=== PATIENT | male | born 1975 | race American Indian/Alaskan Native ===

== ENCOUNTER 2017-11-06 03:17 | Emergency (ER) | payer SELFPAY ==
[2017-11-06 03:36] VITALS: BP 124/80
--- NOTE | 2017-11-06 04:52 | Emergency Department Report ---
Chief Complaint: Urogenital-Male Stated Complaint: PENIS PAIN - HPI History of Present Illness: 42-year-old -[place] male comes in reporting pain on penis but not scrotum. Patient denies dysuria denies any penile discharge. Reports it hurts when he sitting and lying down. Patient reports he took an aspirin which he reported did not help. He reports he does have a sore on the side of his penis. Patient denies any drainage from the sore. Patient denies nausea vomiting fever or chills. Denies any abdominal pain or pelvic pain. Patient has no past medical history currently takes no medications and has no known drug allergies. - Exam Vital Signs: Vital Signs 11/06/17 03:20 Temperature 98.5 F Pulse Rate 93 H Respiratory 18 Rate Blood Pressure 124/80 O2 Sat by Pulse 99 Oximetry Physical Exam: Patient is alert and oriented 3. Genital exam shows there is a open sore to the proximal penile shaft with no swelling nonerythematous. Testicles are nonswollen and nonerythematous non-painful to palpate. Penis is circumcised discharge appreciated MSE screening note: Focused history and physical exam performed. Due to findings the following was ordered: Discussed the patient he can follow-up with the health department staff at [facility] Patient presents with a non-medical emergency. ED Disposition for MSE Disposition: MED SCREENING EXAM-LEFT Condition: Stable Referrals: ALYSSA FISH MD [Primary Care Provider] - 3-5 Days
== END 2017-11-06 04:30 | disposition left against medical advice (07) ==
LOC: ED 03:17
DX: N48.89 Other specified disorders of penis (principal); Z53.21 Procedure and treatment not carried out due to patient leaving prior to being seen by health care provider

== ENCOUNTER 2019-11-19 18:27 | Emergency (ER) | payer SELFPAY ==
[2019-11-19 19:10] LABS: Basophils % (Auto) 0.8 % (0.0-1.8); Eosinophils # (Auto) 0.4 K/mm3 (0.0-0.4); Eosinophils % (Auto) 7.4 % (0.0-4.3); Hematocrit 42.2 % (35.5-45.6); Hemoglobin 14.6 gm/dl (11.8-15.2); Lymphocytes # (Auto) 1.5 K/mm3 (1.2-5.4); Lymphocytes % (Auto) 30.8 % (13.4-35.0); Mean Corpuscular HGB Conc 35 % (32-34); Mean Corpuscular Volume 95 fl (84-94); Monocytes # (Auto) 0.4 K/mm3 (0.0-0.8); Monocytes % (Auto) 9.2 % (0.0-7.3); Platelet Count 228 K/mm3 (140-440); Red Blood Count 4.45 M/mm3 (3.65-5.03)
[2019-11-19 19:11] LABS: Bilirubin,Urine NEG (Negative); Blood,Urine NEG (Negative); Color,Urine Yellow (Yellow); Protein,Urine <15 mg/dL mg/dL (Negative); Urobilinogen,Urine < 2.0 mg/dL (<2.0)
[2019-11-19 19:31] LABS: Alanine Aminotransferase 27 units/L (7-56); Albumin 4.1 g/dL (3.9-5); BUN/Creatinine Ratio 12; Blood Urea Nitrogen 12 mg/dL (9-20); Hemolysis Index 9
[2019-11-19] MEDS ORDERED: MORPHINE 4 MG/1 ML INJ IV ONE (20:52)
[2019-11-19] MEDS ORDERED: ONDANSETRON 4 MG/2 ML INJ IV ONE (20:52)
[2019-11-19] MEDS ORDERED: SODIUM CHLORIDE 0.9% 1000 ML 1,000 ML IV ONE (20:52)
[2019-11-19] MEDS ORDERED: PANTOPRAZOLE 40 MG INJ IV ONE (21:11)
--- NOTE | 2019-11-19 21:12 | Emergency Department Report ---
ED Abdominal Pain HPI - General Chief Complaint: Abdominal Pain Stated Complaint: STOMACH PAIN Time Seen by Provider: 11/19/19 19:38 Source: patient Mode of arrival: Ambulatory Limitations: No Limitations - History of Present Illness Initial Comments: Patient is a 44-year-old male presents emergency room with complaints of left- sided abdominal pain that began yesterday. He describes the pain as intermittent sharp stabbing pain. He denies any nausea, vomiting, diarrhea, fever, urinary symptoms, pain or swelling in the testicles. He states he had a bowel movement last night, he states that it did feel like he was straining more to have a bowel movement, he denies any rectal bleeding, melena, hematochezia. He denies any sick contacts or recent travel. He has a past surgical history of appendectomy. No allergies to medications. Severity scale (0 -10): 8 - Related Data Previous Rx's Medication Instructions Recorded Last Taken Type Docusate Sodium [Colace] 100 mg PO BID PRN #20 capsule 11/19/19 Unknown Rx Famotidine [Pepcid] 40 mg PO QHS #14 tablet 11/19/19 Unknown Rx Polyethylene Glycol 3350 [Miralax] 7 gm PO DAILY PRN #1 powder 11/19/19 Unknown Rx Simethicone [Gas-X] 62.5 mg PO Q6HR PRN #1 strip 11/19/19 Unknown Rx Allergies Allergy/AdvReac Type Severity Reaction Status Date / Time No Known Allergies Allergy Verified 11/19/19 18:31 ED Review of Systems ROS: Stated complaint: STOMACH PAIN Other details as noted in HPI Comment: All other systems reviewed and negative ED Past Medical Hx - Past Medical History Previous Medical History?: No - Surgical History Hx Appendectomy: (" CLIPPED APPENDIX.') - Social History Smoking Status: Current Every Day Smoker Substance Use Type: None - Medications Home Medications: Home Medications Medication Instructions Recorded Confirmed Last Taken Type Docusate Sodium [Colace] 100 mg PO BID PRN #20 capsule 11/19/19 Unknown Rx Famotidine [Pepcid] 40 mg PO QHS #14 tablet 11/19/19 Unknown Rx Polyethylene Glycol 3350 [Miralax] 7 gm PO DAILY PRN #1 powder 11/19/19 Unknown Rx Simethicone [Gas-X] 62.5 mg PO Q6HR PRN #1 strip 11/19/19 Unknown Rx ED Physical Exam - General Limitations: No Limitations General appearance: alert, in no apparent distress - Head Head exam: Present: atraumatic, normocephalic - Eye Eye exam: Present: normal appearance - ENT ENT exam: Present: mucous membranes moist - Respiratory Respiratory exam: Present: normal lung sounds bilaterally. Absent: respiratory distress, wheezes, rales, rhonchi, stridor, chest wall tenderness, accessory muscle use, decreased breath sounds, prolonged expiratory - Cardiovascular Cardiovascular Exam: Present: regular rate, normal rhythm, normal heart sounds. Absent: systolic murmur, diastolic murmur, rubs, gallop - GI/Abdominal GI/Abdominal exam: Present: soft, tenderness (LUQ, epigastric), normal bowel sounds. 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 Absent: testicular tenderness, urethral discharge, scrotal swelling External exam: Present: normal external exam - Neurological Exam Neurological exam: Present: alert, oriented X3 - Psychiatric Psychiatric exam: Present: normal affect, normal mood - Skin Skin exam: Present: warm, dry, intact ED Course Vital Signs 11/19/19 11/19/19 18:35 21:35 Temperature 98.3 F Pulse Rate 88 Respiratory 15 18 Rate Blood Pressure 125/94 [Left] O2 Sat by Pulse 100 Oximetry ED Medical Decision Making - Lab Data Result diagrams: 11/19/19 18:56 11/19/19 18:56 Lab Results 11/19/19 11/19/19 11/19/19 Range/Units 18:56 18:56 Unknown WBC 4.9 (4.5-11.0) K/mm3 RBC 4.45 (3.65-5.03) M/mm3 Hgb 14.6 (11.8-15.2) gm/dl Hct 42.2 (35.5-45.6) % MCV 95 H (84-94) fl MCH 33 H (28-32) pg MCHC 35 H (32-34) % RDW 14.0 (13.2-15.2) % Plt Count 228 (140-440) K/mm3 Lymph % (Auto) 30.8 (13.4-35.0) % [place] % (Auto) 9.2 H (0.0-7.3) % Eos % (Auto) 7.4 H (0.0-4.3) % Baso % (Auto) 0.8 (0.0-1.8) % Lymph # 1.5 (1.2-5.4) K/mm3 [place] # 0.4 (0.0-0.8) K/mm3 Eos # 0.4 (0.0-0.4) K/mm3 Baso # 0.0 (0.0-0.1) K/mm3 Seg Neutrophils % 51.8 (40.0-70.0) % Seg Neutrophils # 2.5 (1.8-7.7) K/mm3 Sodium 139 (137-145) mmol/L Potassium 4.4 (3.6-5.0) mmol/L Chloride 102.5 (98-107) mmol/L Carbon Dioxide 26 (22-30) mmol/L Anion Gap 15 mmol/L BUN 12 (9-20) mg/dL Creatinine 1.0 (0.8-1.5) mg/dL Estimated GFR > 60 ml/min BUN/Creatinine Ratio 12 % Glucose 97 (75-100) mg/dL Calcium 9.0 (8.4-10.2) mg/dL Total Bilirubin 0.40 (0.1-1.2) mg/dL AST 22 (5-40) units/L ALT 27 (7-56) units/L Alkaline Phosphatase 77 (35-129) units/L Total Protein 6.7 (6.3-8.2) g/dL Albumin 4.1 (3.9-5) g/dL Albumin/Globulin Ratio 1.6 % Urine Color Yellow (Yellow) Urine Turbidity Clear (Clear) Urine pH 7.0 (5.0-7.0) Ur Specific [place] 1.018 (1.003-1.030) Urine Protein <15 mg/dl (Negative) mg/dL Urine Glucose (UA) Neg (Negative) mg/dL Urine Ketones Neg (Negative) mg/dL Urine Blood Neg (Negative) Urine Nitrite Neg (Negative) Urine Bilirubin Neg (Negative) Urine Urobilinogen < 2.0 (<2.0) mg/dL Ur Leukocyte Esterase Neg (Negative) Urine WBC (Auto) 1.0 (0.0-6.0) /HPF Urine RBC (Auto) 1.0 (0.0-6.0) /HPF U Epithel Cells (Auto) < 1.0 (0-13.0) /HPF - Radiology Data Radiology results: report reviewed CT abdomen pelvis w con INDICATION / CLINICAL INFORMATION: MAIN: epigastric, LUQ pain Omnipaque 300, 100ml given. . TECHNIQUE: All CT scans at this location are performed using CT dose reduction for ALARA by means of automated exposure control. COMPARISON: 10/15/2019 FINDINGS: Limited lower thoracic images show no acute pulmonary disease. ABDOMEN: The gallbladder, liver, spleen, pancreas, kidneys and adrenal glands are normal. No small bowel dilatation. Pelvis: Post surgical changes are seen in the right lower quadrant presumably due to appendectomy. No dependent fluid collections or inflammatory changes are seen in the pelvis. Mild hypertrophic degenerative changes are seen in the lumbar spine at L4. IMPRESSION: 1. No acute findings in the abdomen or pelvis Signer Name: Angel Luis Mcnulty MD Signed: 11/19/2019 9:49 PM Workstation Name: [id number] Transcribed By: BHUPINDER Dictated By: Angel Luis Mcnulty MD Electronically Authenticated By: Angel Luis Mcnulty MD Signed Date/Time: 11/19/192148 DD/ 45 TD/TT: - Medical Decision Making Patient is a 44-year-old male presents emergency room with complaints of left- sided abdominal pain that began yesterday. He describes the pain as int ermittent sharp stabbing pain. He denies any nausea, vomiting, diarrhea, fever, urinary symptoms, pain or swelling in the testicles. He states he had a bowel movement last night, he states that it did feel like he was straining more to have a bowel movement, he denies any rectal bleeding, melena, hematochezia. He denies any sick contacts or recent travel. He has a past surgical history of appendectomy. No allergies to medications. Vitals are normal. Labs are normal. 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 CT abd pelvis with IV contrast: 1. No acute findings in the abdomen or pelvis. Patient given IV fluids, morphine, Zofran, Protonix and symptoms resolved. Appears to have stool and gas present on CT without signs of obstruction. Patient given prescription for MiraLAX, Colace, Pepcid, simethicone. Advised patient Please take medication as prescribed. Increase your water intake. Increase your fiber intake. Follow-up with a primary care doctor. Follow-up with a GI doctor. Return to emergency room for any new or worsening symptoms. - Differential Diagnosis PUD, GERD, bowel obstruction, constipation, gas pain, enteritis, gastritis Critical care attestation.: If time is entered above; I have spent that time in minutes in the direct care of this critically ill patient, excluding procedure time. ED Disposition Clinical Impression: Abdominal pain Qualifiers: Abdominal location: left lower quadrant Qualified Code(s): R10.32 - Left lower quadrant pain Constipation Qualifiers: Constipation type: unspecified constipation type Qualified Code(s): K59.00 - Constipation, unspecified Disposition: DC- TO HOME OR SELFCARE Is pt being admited?: No Does the pt Need Aspirin: No Condition: Stable Instructions: Constipation (ED), High Fiber Diet (ED), Acute Abdominal Pain (ED), Gas and Bloating (ED) Additional Instructions: Please take medication as prescribed. Increase your water intake. Increase your fiber intake. Follow-up with a primary care doctor. Follow-up with a GI doctor. Return to emergency room for any new or worsening symptoms. Prescriptions: Famotidine [Pepcid] 40 mg PO QHS #14 tablet Docusate Sodium [Colace] 100 mg PO BID PRN #20 capsule PRN Reason: constipation Simethicone [Gas-X] 62.5 mg PO Q6HR PRN #1 strip PRN Reason: gas Polyethylene Glycol 3350 [Miralax] 7 gm PO DAILY PRN #1 powder PRN Reason: Constipation Referrals: REYMUNDO REYES MD [Staff Physician] - 3-5 Days [facility] [Outside] - 3-5 Days [facility] [Provider Group] - 3-5 Days Forms: Work/School Release Form(ED) Time of Disposition: 22:37 Print Language: VENEZUELAN
--- NOTE | 2019-11-19 21:54 | Cat Scan Report ---
CT abdomen pelvis w con INDICATION / CLINICAL INFORMATION: MAIN: epigastric, LUQ pain Omnipaque 300, 100ml given. . TECHNIQUE: All CT scans at this location are performed using CT dose reduction for ALARA by means of automated e xposure control. COMPARISON: 10/15/2019 FINDINGS: Limited lower thoracic images show no acute pulmonary disease. ABDOMEN: The gallbladder, liver, spleen, pancreas, kidneys and adrenal glands are normal. No small bowel dilatation. Pelvis: Post surgical changes are seen in the right lower quadrant presumably due to appendectomy. No dependent fluid collections or inflammatory changes are seen in the pelvis. Mild hypertrophic degenerative changes are seen in the lumbar spine at L4. IMPRESSION: 1. No acute findings in the abdomen or pelvis Signer Name: Angel Luis Mcnulty MD Signed: 11/19/2019 9:49 PM Workstation Name: [id number]
[2019-11-20 01:21] VITALS: BP 136/81
== END 2019-11-19 22:55 | disposition home or self-care (01) ==
LOC: ED 18:27
DX: R10.9 Unspecified abdominal pain (principal); K59.00 Constipation, unspecified; F17.200 Nicotine dependence, unspecified, uncomplicated; Z79.899 Other long term (current) drug therapy
CPT/HCPCS: 36415; 74177; 80053; 81001; 85025; 96374; 96375; 99284; C9113; J2270; J2405; J7030; Q9967

== ENCOUNTER 2020-01-01 08:18 | Emergency (ER) | payer SELFPAY ==
[2020-01-01 08:26] VITALS: BP 126/89
[2020-01-01 09:14] LABS: Bilirubin,Urine NEG (Negative); Blood,Urine NEG (Negative); Color,Urine Yellow (Yellow); Mucus,Urine FEW /HPF; Protein,Urine <15 mg/dL mg/dL (Negative); RBC,Urine < 1.0 /HPF (0.0-6.0); Urobilinogen,Urine < 2.0 mg/dL (<2.0); WBC,Urine < 1.0 /HPF (0.0-6.0)
[2020-01-01] MEDS ORDERED: SODIUM CHLORIDE 0.9% 1000 ML 1,000 ML IV ONE (09:29)
[2020-01-01] MEDS ORDERED: FAMOTIDINE 20 MG/2 ML INJ IV ONE (09:30)
[2020-01-01 09:31] LABS: Alanine Aminotransferase 126 units/L (7-56); Albumin 4.6 g/dL (3.9-5); BUN/Creatinine Ratio 9; Blood Urea Nitrogen 10 mg/dL (9-20); Calcium 9.1 mg/dL (8.4-10.2); Hemolysis Index 1
[2020-01-01 09:38] LABS: Basophils % (Auto) 0.6 % (0.0-1.8); Eosinophils # (Auto) 0.2 K/mm3 (0.0-0.4); Eosinophils % (Auto) 4.1 % (0.0-4.3); Hematocrit 45.7 % (35.5-45.6); Hemoglobin 15.6 gm/dl (11.8-15.2); Lymphocytes # (Auto) 1.9 K/mm3 (1.2-5.4); Lymphocytes % (Auto) 40.3 % (13.4-35.0); Mean Corpuscular HGB Conc 34 % (32-34); Mean Corpuscular Volume 95 fl (84-94); Monocytes # (Auto) 0.5 K/mm3 (0.0-0.8); Monocytes % (Auto) 9.4 % (0.0-7.3); Platelet Count 254 K/mm3 (140-440); Red Blood Count 4.82 M/mm3 (3.65-5.03); Red Cell Distribution Width 13.9 % (13.2-15.2)
--- NOTE | 2020-01-01 10:13 | Emergency Department Report ---
ED Abdominal Pain HPI - General Chief Complaint: Abdominal Pain Stated Complaint: STOMACH PAINS Time Seen by Provider: 01/01/20 09:12 Source: patient Mode of arrival: Ambulatory Limitations: No Limitations - History of Present Illness Initial Comments: 44-year-old male complaining of stomach pain x2 days associated with vomiting and diarrhea. He denies fever and chills. He denies any chronic drug and alcohol use. The abdominal pain is more focused to the left lower quadrant. Patient states he had a similar event approximately 2 months ago. MD Complaint: abdominal pain -: days(s) (2) Location: LLQ Radiation: none Migration to: no migration Severity scale (0 -10): 7 Quality: aching Consistency: intermittent Improves With: nothing Worsens With: nothing Associated Symptoms: nausea, vomiting, diarrhea. denies: fever, chills, constipation, dysuria, hematemesis, hematochezia, melena, hematuria, anorexia, syncope - Related Data Previous Rx's Medication Instructions Recorded Last Taken Type Docusate Sodium [Colace] 100 mg PO BID PRN #20 capsule 11/19/19 Unknown Rx Famotidine [Pepcid] 40 mg PO QHS #14 tablet 11/19/19 Unknown Rx Polyethylene Glycol 3350 [Miralax] 7 gm PO DAILY PRN #1 powder 11/19/19 Unknown Rx Simethicone [Gas-X] 62.5 mg PO Q6HR PRN #1 strip 11/19/19 Unknown Rx Ondansetron [Zofran Odt] 4 mg PO Q8HR PRN #12 tab.rapdis 01/01/20 Unknown Rx Allergies Allergy/AdvReac Type Severity Reaction Status Date / Time No Known Allergies Allergy Verified 11/19/19 18:31 ED Review of Systems ROS: Stated complaint: STOMACH PAINS Other details as noted in HPI Comment: All other systems reviewed and negative Constitutional: denies: chills, fever, weakness Eyes: denies: eye pain, vision change ENT: denies: throat pain Respiratory: denies: cough, shortness of breath, wheezing Cardiovascular: denies: chest pain, palpitations Endocrine: no symptoms reported Gastrointestinal: abdominal pain, nausea, vomiting, diarrhea Genitourinary: denies: dysuria Skin: denies: rash Psychiatric: denies: anxiety, depression ED Past Medical Hx - Past Medical History Previous Medical History?: No - Surgical History Past Surgical History?: Yes Hx Appendectomy: Yes (" CLIPPED APPENDIX.') - Social History Smoking Status: Current Every Day Smoker Substance Use Type: Alcohol, Marijuana - Medications Home Medications: Home Medications Medication Instructions Recorded Confirmed Last Taken Type Docusate Sodium [Colace] 100 mg PO BID PRN #20 capsule 11/19/19 Unknown Rx Famotidine [Pepcid] 40 mg PO QHS #14 tablet 11/19/19 Unknown Rx Polyethylene Glycol 3350 [Miralax] 7 gm PO DAILY PRN #1 powder 11/19/19 Unknown Rx Simethicone [Gas-X] 62.5 mg PO Q6HR PRN #1 strip 11/19/19 Unknown Rx Ondansetron [Zofran Odt] 4 mg PO Q8HR PRN #12 tab.rapdis 01/01/20 Unknown Rx ED Physical Exam - General Limitations: No Limitations General appearance: alert, in no apparent distress - Head Head exam: Present: atraumatic - Eye Eye exam: Present: normal appearance. Absent: scleral icterus, conjunctival injection - ENT ENT exam: Present: normal exam, mucous membranes moist - Neck Neck exam: Present: normal inspection. Absent: lymphadenopathy - Respiratory Respiratory exam: Present: normal lung sounds bilaterally. Absent: respiratory distress, wheezes - Cardiovascular Cardiovascular Exam: Present: regular rate, normal heart sounds - GI/Abdominal GI/Abdominal exam: Present: soft, normal bowel sounds (left lower quad tenderness). Absent: distended, organomegaly - Extremities Exam Extremities exam: Present: normal inspection, normal capillary refill - Back Exam Back exam: Present: normal inspection. Absent: CVA tenderness (R), CVA tenderness (L) - Neurological Exam Neurological exam: Present: alert, oriented X3 - Psychiatric Psychiatric exam: Present: normal affect - Skin Skin exam: Present: warm, dry, intact, normal color. Absent: rash ED Course Vital Signs 01/01/20 08:23 Temperature 98.2 F Pulse Rate 100 H Respiratory 16 Rate Blood Pressure 126/89 O2 Sat by Pulse 98 Oximetry - Reevaluation(s) Reevaluation #1: 01/01/20 10:28 Patient states he is feeling much better he has not had any vomiting or diarrhea since being in the hospital. Patient agrees that he is ready to go home no current abdominal pain ED Medical Decision Making - Lab Data Result diagrams: 01/01/20 08:53 01/01/20 08:53 - Medical Decision Making Lab results reviewed. Potassium is 3.4 and KCl 40 M EQ's x1 dose given in the ER. AST is 64 ALT is 126 I discussed with patient that his liver enzymes are elevated and that he would need to follow-up PCP, Dr. Herron or with survey research professor. Patient has no vomiting no abdominal pain at this time Critical care attestation.: If time is entered above; I have spent that time in minutes in the direct care of this critically ill patient, excluding procedure time. ED Disposition Clinical Impression: Elevated alanine aminotransferase (ALT) level, Hypokalemia Abdominal pain Qualifiers: Abdominal location: left lower quadrant Qualified Code(s): R10.32 - Left lower quadrant pain Vomiting Qualifiers: Vomiting type: unspecified Vomiting Intractability: non-intractable Nausea presence: with nausea Qualified Code(s): R11.2 - Nausea with vomiting, unspecified Disposition: TO HOME OR SELFCARE Is pt being admited?: No Does the pt Need Aspirin: No Condition: Stable Instructions: Abdominal Pain (ED), Gastroenteritis (ED), Hypokalemia (ED) Additional Instructions: Your liver enzymes are elevated your AST is 64 your ALT is 126 please follow-up with your primary care doctor or Dr. Kiesha Desir, or to a survey research professor of your choice. Return to the emergency room if you develop worsening abdominal pain vomiting blood diarrhea with blood fever and chills. Prescriptions: Ondansetron [Zofran Odt] 4 mg PO Q8HR PRN #12 tab.rapdis PRN Reason: Nausea Referrals: PRIMARY CARE, [Primary Care Provider] - 3-5 Days REYMUNDO HERRON MD [Staff Physician] - 3-5 Days [facility] [Outside] - 3-5 Days Forms: Work/School Release Form(ED) Time of Disposition: 10:44
[2020-01-01] MEDS ORDERED: POTASSIUM CHLORIDE ER 20 MEQ TAB PO ONE (10:29)
== END 2020-01-01 10:52 | disposition home or self-care (01) ==
LOC: ED 08:18
DX: E87.6 Hypokalemia (principal); F17.200 Nicotine dependence, unspecified, uncomplicated; F12.10 Cannabis abuse, uncomplicated; R74.0 Nonspecific elevation of levels of transaminase and lactic acid dehydrogenase [LDH]
CPT/HCPCS: 36415; 80053; 81001; 83690; 85025; 96361; 96374; 99283; J7030

== ENCOUNTER 2020-02-16 19:23 | Emergency (ER) | payer SELFPAY ==
--- NOTE | 2020-02-16 20:41 | Event Note ---
ED Screening Note ED Screening Note: 44-year-old male that presents with SOB, subecitve fever, body aches, and cough. This initial assessment/diagnostic orders/clinical plan/treatment(s) is/are subject to change based on patients health status, clinical progression and re- assessment by fellow clinical providers in the ED. Further treatment and workup at subsequent clinical providers discretion. Patient/guardian urged not to elope from the ED as their condition may be serious if not clinically assessed and managed. Initial orders include: cxr
--- NOTE | 2020-02-16 21:52 | XRay Report ---
CHEST 2 VIEWS INDICATION / CLINICAL INFORMATION: cough. COMPARISON: None available. FINDINGS: SUPPORT DEVICES: None. HEART / MEDIASTINUM: No significant abnormality. LUNGS / PLEURA: No significant pulmonary or pleural abnormality. No pneumothorax. ADDITIONAL FINDINGS: No significant additional findings. IMPRESSION: 1. No acute findings. No evidence of pneumonia. Signer Name: Sophie Leon MD Signed: 02/16/2020 9:47 PM Workstation Name: [id number]
--- NOTE | 2020-02-16 23:13 | Emergency Department Report ---
ED ENT HPI - General Chief complaint: Upper Respiratory Infection Stated complaint: F/COUGH/ Time Seen by Provider: 02/16/20 20:40 Source: patient Mode of arrival: Ambulatory Limitations: No Limitations - History of Present Illness -: Gradual Severity: mild, moderate Quality: burning Consistency: constant - Related Data Previous Rx's Medication Instructions Recorded Last Taken Type Docusate Sodium [Colace] 100 mg PO BID PRN #20 capsule 11/19/19 Unknown Rx Famotidine [Pepcid] 40 mg PO QHS #14 tablet 11/19/19 Unknown Rx Polyethylene Glycol 3350 [Miralax] 7 gm PO DAILY PRN #1 powder 11/19/19 Unknown Rx Simethicone [Gas-X] 62.5 mg PO Q6HR PRN #1 strip 11/19/19 Unknown Rx Ondansetron [Zofran Odt] 4 mg PO Q8HR PRN #12 tab.rapdis 01/01/20 Unknown Rx Famotidine [Pepcid] 20 mg PO BID #30 tablet 01/23/20 Unknown Rx Naproxen 500 mg PO BID PRN #30 tablet 01/23/20 Unknown Rx Albuterol Mdi (or & Nicu Only) 2 puff IH QID PRN #1 inhalation 02/16/20 Unknown Rx [ProAir HFA Inhaler] Azithromycin [Zithromax] 500 mg PO QDAY #5 tablet 02/16/20 Unknown Rx predniSONE [Deltasone] 50 mg PO QDAY #5 tab 02/16/20 Unknown Rx Allergies Allergy/AdvReac Type Severity Reaction Status Date / Time No Known Allergies Allergy Verified 11/19/19 18:31 ED Dental HPI - General Chief complaint: Upper Respiratory Infection Stated complaint: F/COUGH/ Time Seen by Provider: 02/16/20 20:40 Source: patient Mode of arrival: Ambulatory Limitations: No Limitations - Related Data Previous Rx's Medication Instructions Recorded Last Taken Type Docusate Sodium [Colace] 100 mg PO BID PRN #20 capsule 11/19/19 Unknown Rx Famotidine [Pepcid] 40 mg PO QHS #14 tablet 11/19/19 Unknown Rx Polyethylene Glycol 3350 [Miralax] 7 gm PO DAILY PRN #1 powder 11/19/19 Unknown Rx Simethicone [Gas-X] 62.5 mg PO Q6HR PRN #1 strip 11/19/19 Unknown Rx Ondansetron [Zofran Odt] 4 mg PO Q8HR PRN #12 tab.rapdis 01/01/20 Unknown Rx Famotidine [Pepcid] 20 mg PO BID #30 tablet 01/23/20 Unknown Rx Naproxen 500 mg PO BID PRN #30 tablet 01/23/20 Unknown Rx Albuterol Mdi (or & Nicu Only) 2 puff IH QID PRN #1 inhalation 02/16/20 Unknown Rx [ProAir HFA Inhaler] Azithromycin [Zithromax] 500 mg PO QDAY #5 tablet 02/16/20 Unknown Rx predniSONE [Deltasone] 50 mg PO QDAY #5 tab 02/16/20 Unknown Rx Allergies Allergy/AdvReac Type Severity Reaction Status Date / Time No Known Allergies Allergy Verified 11/19/19 18:31 ED Review of Systems ROS: Stated complaint: F/COUGH/ Other details as noted in HPI Comment: All other systems reviewed and negative ED Past Medical Hx - Past Medical History Previous Medical History?: No - Surgical History Past Surgical History?: Yes Hx Appendectomy: Yes (" CLIPPED APPENDIX", 2019) - Social History Smoking Status: Current Every Day Smoker Substance Use Type: None - Medications Home Medications: Home Medications Medication Instructions Recorded Confirmed Last Taken Type Docusate Sodium [Colace] 100 mg PO BID PRN #20 capsule 11/19/19 Unknown Rx Famotidine [Pepcid] 40 mg PO QHS #14 tablet 11/19/19 Unknown Rx Polyethylene Glycol 3350 [Miralax] 7 gm PO DAILY PRN #1 powder 11/19/19 Unknown Rx Simethicone [Gas-X] 62.5 mg PO Q6HR PRN #1 strip 11/19/19 Unknown Rx Ondansetron [Zofran Odt] 4 mg PO Q8HR PRN #12 tab.rapdis 01/01/20 Unknown Rx Famotidine [Pepcid] 20 mg PO BID #30 tablet 01/23/20 Unknown Rx Naproxen 500 mg PO BID PRN #30 tablet 01/23/20 Unknown Rx Albuterol Mdi (or & Nicu Only) 2 puff IH QID PRN #1 inhalation 02/16/20 Unknown Rx [ProAir HFA Inhaler] Azithromycin [Zithromax] 500 mg PO QDAY #5 tablet 02/16/20 Unknown Rx predniSONE [Deltasone] 50 mg PO QDAY #5 tab 02/16/20 Unknown Rx ED Physical Exam - General Limitations: No Limitations General appearance: alert, in no apparent distress - Head Head exam: Present: atraumatic, normocephalic - Eye Eye exam: Present: normal appearance, PERRL, EOMI Pupils: Present: normal accommodation - ENT ENT exam: Present: normal exam, mucous membranes moist - Neck Neck exam: Present: normal inspection, full ROM - Respiratory Respiratory exam: Present: normal lung sounds bilaterally. Absent: respiratory distress - Cardiovascular Cardiovascular Exam: Present: regular rate, normal rhythm. Absent: systolic murmur, diastolic murmur, rubs, gallop - GI/Abdominal GI/Abdominal exam: Present: soft, normal bowel sounds - Rectal Rectal exam: Present: deferred - Extremities Exam Extremities exam: Present: normal inspection - Back Exam Back exam: Present: normal inspection - Neurological Exam Neurological exam: Present: alert, oriented X3 - Psychiatric Psychiatric exam: Present: normal affect, normal mood - Skin Skin exam: Present: warm, dry, intact, normal color. Absent: rash ED Medical Decision Making - Radiology Data Radiology results: report reviewed [facility] [address] [place] [address] XRay Report Signed Patient: JEREMY LEO MR#: [id number] : 1975 Acct:[id number] Age/Sex: 44 / M ADM Date: 02/16/20 Loc: ED Attending Dr: Ordering Physician: NELLY ANTONY NP Date of Service: 02/16/20 Procedure(s): XR chest routine 2V Accession Number(s): [id number] cc: NELLY ANTONY NP Fluoro Time In Minutes: CHEST 2 VIEWS INDICATION / CLINICAL INFORMATION: cough. COMPARISON: None available. FINDINGS: SUPPORT DEVICES: None. HEART / MEDIASTINUM: No significant abnormality. LUNGS / PLEURA: No significant pulmonary or pleural abnormality. No pneumothorax. ADDITIONAL FINDINGS: No significant additional findings. IMPRESSION: 1. No acute findings. No evidence of pneumonia. Signer Name: Sophie Leon MD Signed: 02/16/2020 9:47 PM Workstation Name: [id number] Transcribed By: Dictated By: Sophie Leon MD Electronically Authenticated By: Sophie Leon MD Signed Date/Time: 02/16/202146 DD/ 46 TD/TT: Critical care attestation.: If time is entered above; I have spent that time in minutes in the direct care of this critically ill patient, excluding procedure time. ED Disposition Clinical Impression: Bronchitis Disposition: DC-01 TO HOME OR SELFCARE Is pt being admited?: No Does the pt Need Aspirin: No Condition: Stable Instructions: Chronic Bronchitis (ED), Acute Bronchitis (ED) Referrals: PRIMARY CAREMD [Primary Care Provider] - 3-5 Days [facility] [Provider Group] - 3-5 Days
[2020-02-17 00:08] VITALS: BP 113/70
== END 2020-02-17 00:11 | disposition home or self-care (01) ==
LOC: ED 19:23
DX: J40 Bronchitis, not specified as acute or chronic (principal); F17.200 Nicotine dependence, unspecified, uncomplicated; Z90.49 Acquired absence of other specified parts of digestive tract; Z79.899 Other long term (current) drug therapy
CPT/HCPCS: 71046; 99283

== ENCOUNTER 2020-08-23 03:01 | Emergency (ER) | payer SELFPAY ==
[2020-08-23 04:44] LABS: Basophils % (Auto) 0.5 % (0.0-1.8); Eosinophils # (Auto) 0.2 K/mm3 (0.0-0.4); Eosinophils % (Auto) 2.9 % (0.0-4.3); Hematocrit 45.9 % (35.5-45.6); Hemoglobin 15.6 gm/dl (11.8-15.2); Lymphocytes # (Auto) 2.3 K/mm3 (1.2-5.4); Lymphocytes % (Auto) 38.4 % (13.4-35.0); Mean Corpuscular HGB Conc 34 % (32-34); Mean Corpuscular Volume 95 fl (84-94); Monocytes # (Auto) 0.6 K/mm3 (0.0-0.8); Monocytes % (Auto) 10.3 % (0.0-7.3); Platelet Count 278 K/mm3 (140-440); Red Blood Count 4.81 M/mm3 (3.65-5.03); Red Cell Distribution Width 13.8 % (13.2-15.2)
[2020-08-23 04:54] LABS: Bilirubin,Urine NEG (Negative); Blood,Urine NEG (Negative); Color,Urine Yellow (Yellow); Mucus,Urine FEW /HPF; Protein,Urine <15 mg/dL mg/dL (Negative); RBC,Urine < 1.0 /HPF (0.0-6.0); WBC,Urine < 1.0 /HPF (0.0-6.0)
[2020-08-23 05:01] LABS: Alanine Aminotransferase 37 units/L (7-56); Albumin 4.6 g/dL (3.9-5); BUN/Creatinine Ratio 14; Blood Urea Nitrogen 20 mg/dL (9-20); Calcium 9.2 mg/dL (8.4-10.2); Hemolysis Index 11
[2020-08-23 05:52] VITALS: BP 122/70
--- NOTE | 2020-08-23 06:12 | XRay Report ---
ABDOMEN 1 VIEW(S) INDICATION / CLINICAL INFORMATION: Abd pain. COMPARISON: 01/23/2020 FINDINGS: TUBES / LINES: None. BOWEL GAS PATTERN/EXTRALUMINAL GAS: There is mild gaseous distention of small bowel loops in the mida bdomen. This is a nonspecific bowel gas pattern. No free air. ADDITIONAL FINDINGS: No significant additional findings. IMPRESSION: 1. There is mild gaseous distention of small bowel in the midabdomen. This is a nonspecific bowel gas pattern Signer Name: Ibrahima Epps MD Signed: 08/23/2020 6:07 AM Workstation Name: [id number]
--- NOTE | 2020-08-23 06:53 | Emergency Department Report ---
ED Abdominal Pain HPI - General Chief Complaint: Abdominal Pain Stated Complaint: ABDOMINAL PAIN Time Seen by Provider: 08/23/20 06:14 Source: patient Mode of arrival: Ambulatory Limitations: No Limitations - History of Present Illness Initial Comments: 45-year-old male presents to ED with lower abdominal pain since last night. He denies any nausea or vomiting. He reports some diarrhea. He denies fever. MD Complaint: abdominal pain -: Last night Location: suprapubic Radiation: none Migration to: no migration Severity: moderate Quality: cramping Consistency: constant Improves With: nothing Worsens With: nothing - Related Data Previous Rx's Medication Instructions Recorded Last Taken Type Docusate Sodium [Colace] 100 mg PO BID PRN #20 capsule 11/19/19 Unknown Rx Famotidine [Pepcid] 40 mg PO QHS #14 tablet 11/19/19 Unknown Rx Polyethylene Glycol 3350 [Miralax] 7 gm PO DAILY PRN #1 powder 11/19/19 Unknown Rx Simethicone [Gas-X] 62.5 mg PO Q6HR PRN #1 strip 11/19/19 Unknown Rx Ondansetron [Zofran Odt] 4 mg PO Q8HR PRN #12 tab.rapdis 01/01/20 Unknown Rx Famotidine [Pepcid] 20 mg PO BID #30 tablet 01/23/20 Unknown Rx Naproxen 500 mg PO BID PRN #30 tablet 01/23/20 Unknown Rx Albuterol Mdi (or & Nicu Only) 2 puff IH QID PRN #1 inhalation 02/16/20 Unknown Rx [ProAir HFA Inhaler] Azithromycin [Zithromax] 500 mg PO QDAY #5 tablet 02/16/20 Unknown Rx predniSONE [Deltasone] 50 mg PO QDAY #5 tab 02/16/20 Unknown Rx Dicyclomine [Bentyl] 20 mg PO QID PRN #20 tablet 08/23/20 Unknown Rx Allergies Allergy/AdvReac Type Severity Reaction Status Date / Time No Known Allergies Allergy Verified 11/19/19 18:31 ED Review of Systems ROS: Stated complaint: ABDOMINAL PAIN Other details as noted in HPI Comment: All other systems reviewed and negative Constitutional: denies: fever Gastrointestinal: abdominal pain, diarrhea. denies: nausea, vomiting Genitourinary: denies: dysuria, frequency ED Past Medical Hx - Past Medical History Previous Medical History?: No - Surgical History Past Surgical History?: Yes Hx Appendectomy: Yes (" CLIPPED APPENDIX", 2019) - Social History Smoking Status: Current Every Day Smoker Substance Use Type: Alcohol, Marijuana - Medications Home Medications: Home Medications Medication Instructions Recorded Confirmed Last Taken Type Docusate Sodium [Colace] 100 mg PO BID PRN #20 capsule 11/19/19 Unknown Rx Famotidine [Pepcid] 40 mg PO QHS #14 tablet 11/19/19 Unknown Rx Polyethylene Glycol 3350 [Miralax] 7 gm PO DAILY PRN #1 powder 11/19/19 Unknown Rx Simethicone [Gas-X] 62.5 mg PO Q6HR PRN #1 strip 11/19/19 Unknown Rx Ondansetron [Zofran Odt] 4 mg PO Q8HR PRN #12 tab.rapdis 01/01/20 Unknown Rx Famotidine [Pepcid] 20 mg PO BID #30 tablet 01/23/20 Unknown Rx Naproxen 500 mg PO BID PRN #30 tablet 01/23/20 Unknown Rx Albuterol Mdi (or & Nicu Only) 2 puff IH QID PRN #1 inhalation 02/16/20 Unknown Rx [ProAir HFA Inhaler] Azithromycin [Zithromax] 500 mg PO QDAY #5 tablet 02/16/20 Unknown Rx predniSONE [Deltasone] 50 mg PO QDAY #5 tab 02/16/20 Unknown Rx Dicyclomine [Bentyl] 20 mg PO QID PRN #20 tablet 08/23/20 Unknown Rx ED Physical Exam - General Limitations: No Limitations General appearance: alert, in no apparent distress - Head Head exam: Present: atraumatic, normocephalic - Eye Eye exam: Present: normal appearance, EOMI - ENT ENT exam: Present: mucous membranes moist - Neck Neck exam: Present: normal inspection - Respiratory Respiratory exam: Present: normal lung sounds bilaterally. Absent: respiratory distress - Cardiovascular Cardiovascular Exam: Present: regular rate, normal rhythm - GI/Abdominal GI/Abdominal exam: Present: soft. Absent: distended, tenderness - Extremities Exam Extremities exam: Present: normal inspection - Neurological Exam Neurological exam: Present: alert, oriented X3 - Psychiatric Psychiatric exam: Present: normal affect, normal mood - Skin Skin exam: Present: warm, dry, intact, normal color ED Course Vital Signs 08/23/20 08/23/20 03:35 05:50 Temperature 98.0 F Pulse Rate 106 H 96 H Respiratory 16 18 Rate Blood Pressure 123/70 Blood Pressure 122/70 [Left] O2 Sat by Pulse 99 96 Oximetry ED Medical Decision Making - Lab Data Result diagrams: 08/23/20 03:43 08/23/20 03:43 - Radiology Data Radiology results: report reviewed, image reviewed - Medical Decision Making 45-year-old male presents to ED with lower abdominal pain since yesterday. Patient comfortable, asleep on stretcher. Took some significant effort to wake patient up, however when he is awake he was alert and oriented x3. Abdomen is nontender on exam. Labs are unremarkable, abdominal series shows no acute abnormalities. Vitals are normal. Patient will be discharged at this time. Prescriptions given. Outpatient follow-up advised, return precautions given. - Differential Diagnosis Viral illness, UTI, bowel obstruction Critical care attestation.: If time is entered above; I have spent that time in minutes in the direct care of this critically ill patient, excluding procedure time. ED Disposition Clinical Impression: Abdominal pain Disposition: DC-01 TO HOME OR SELFCARE Is pt being admited?: No Condition: Stable Instructions: Abdominal Pain, Adult, [id number] Prescriptions: Dicyclomine [Bentyl] 20 mg PO QID PRN #20 tablet PRN Reason: abdominal pain Referrals: PRIMARY CARE, [Primary Care Provider] - 3-5 Days [facility] [Provider Group] - 3-5 Days Forms: Work/School Release Form(ED) Time of Disposition: 06:52
== END 2020-08-23 07:05 | disposition home or self-care (01) ==
LOC: ED 03:01
DX: R10.30 Lower abdominal pain, unspecified (principal); F17.200 Nicotine dependence, unspecified, uncomplicated; F12.90 Cannabis use, unspecified, uncomplicated; Z79.899 Other long term (current) drug therapy; Z90.49 Acquired absence of other specified parts of digestive tract
CPT/HCPCS: 36415; 74019; 80053; 81001; 83690; 85025

== ENCOUNTER 2020-12-06 03:12 | Emergency (ER) | payer SELFPAY ==
[2020-12-06 09:01] VITALS: BP 145/90
== END 2020-12-06 09:01 | disposition home or self-care (01) ==
LOC: ED 03:12
DX: N18.9 Chronic kidney disease, unspecified (principal); F17.200 Nicotine dependence, unspecified, uncomplicated; Z72.89 Other problems related to lifestyle; F12.10 Cannabis abuse, uncomplicated; Z79.899 Other long term (current) drug therapy
CPT/HCPCS: 36415; 80053; 81001; 85025; 96361; 96374; 99283; J2405; J7030

== ENCOUNTER 2020-12-24 02:47 | Emergency (ER) | payer SELFPAY | END 2020-12-24 03:15 | disposition left against medical advice (07) | LOC: ED 02:47 | DX: R10.9 Unspecified abdominal pain (principal); Z53.21 Procedure and treatment not carried out due to patient leaving prior to being seen by health care provider ==

== ENCOUNTER 2020-12-25 00:42 | Emergency (ER) | payer SELFPAY ==
[2020-12-25 03:10] LABS: Basophils % (Auto) 0.5 % (0.0-1.8); Eosinophils # (Auto) 0.2 K/mm3 (0.0-0.4); Eosinophils % (Auto) 2.6 % (0.0-4.3); Hemoglobin 15.4 gm/dl (11.8-15.2); Lymphocytes # (Auto) 1.9 K/mm3 (1.2-5.4); Lymphocytes % (Auto) 28.7 % (13.4-35.0); Mean Corpuscular HGB Conc 35 % (32-34); Mean Corpuscular Volume 96 fl (84-94); Monocytes # (Auto) 0.9 K/mm3 (0.0-0.8); Monocytes % (Auto) 13.8 % (0.0-7.3); Platelet Count 247 K/mm3 (140-440); Red Blood Count 4.61 M/mm3 (3.65-5.03)
[2020-12-25 03:28] LABS: Alanine Aminotransferase 54 units/L (7-56); Albumin 4.6 g/dL (3.9-5); BUN/Creatinine Ratio 16; Blood Urea Nitrogen 22 mg/dL (9-20); Hemolysis Index 6
[2020-12-25] MEDS ORDERED: ONDANSETRON 4 MG/2 ML INJ IV ONE (06:19)
[2020-12-25] MEDS ORDERED: MORPHINE 4 MG/1 ML INJ IV ONE (06:19)
[2020-12-25] MEDS ORDERED: SODIUM CHLORIDE 0.9% 1000 ML 1,000 ML IV ONE (06:24)
--- NOTE | 2020-12-25 06:24 | Emergency Department Report ---
<STEPHANIE LAW - Last Filed: 12/25/20 07:14> ED Abdominal Pain HPI - General Chief Complaint: Abdominal Pain Stated Complaint: STOMACH PAIN Source: patient Mode of arrival: Ambulatory Limitations: No Limitations - History of Present Illness Initial Comments: Patient is a 45-year-old -[place] male with no past medical history presents to the ED with complaint of acute onset persistent severe left lower quadrant abdominal pain with nausea intermittently for the last 2 days, worse in the last 24 hours. Patient states that the pain is constant and persistent and worse with any movement or palpation of the area. Patient denies dysuria, urinary frequency and urgency, hematuria, testicular pain, fever, chills, vomiting, diarrhea, dizziness, syncope, traumatic injury, heavy lifting, fall, chest pain or shortness of breath, hematemesis, hematochezia, constipation, penile discharge or flank pain. MD Complaint: abdominal pain (Left lower quadrant abdominal pain), other (Nausea) -: Sudden, days(s) (2) Location: LLQ Radiation: LLQ Migration to: no migration Severity scale (0 -10): 7 Quality: cramping, aching, sharp Consistency: constant Improves With: nothing Worsens With: nothing Associated Symptoms: denies other symptoms, nausea, anorexia. denies: vomiting, diarrhea, fever, chills, dysuria, hematemesis, hematochezia, melena, hematuria - Related Data Previous Rx's Medication Instructions Recorded Last Taken Type Docusate Sodium [Colace] 100 mg PO BID PRN #20 capsule 11/19/19 Unknown Rx Famotidine [Pepcid] 40 mg PO QHS #14 tablet 11/19/19 Unknown Rx Polyethylene Glycol 3350 [Miralax] 7 gm PO DAILY PRN #1 powder 11/19/19 Unknown Rx Simethicone [Gas-X] 62.5 mg PO Q6HR PRN #1 strip 11/19/19 Unknown Rx Ondansetron [Zofran Odt] 4 mg PO Q8HR PRN #12 tab.rapdis 01/01/20 Unknown Rx Famotidine [Pepcid] 20 mg PO BID #30 tablet 01/23/20 Unknown Rx Naproxen 500 mg PO BID PRN #30 tablet 01/23/20 Unknown Rx Albuterol Mdi (or & Nicu Only) 2 puff IH QID PRN #1 inhalation 02/16/20 Unknown Rx [ProAir HFA Inhaler] Azithromycin [Zithromax] 500 mg PO QDAY #5 tablet 02/16/20 Unknown Rx predniSONE [Deltasone] 50 mg PO QDAY #5 tab 02/16/20 Unknown Rx Dicyclomine [Bentyl] 20 mg PO QID PRN #20 tablet 08/23/20 Unknown Rx Ciprofloxacin HCl 500 mg PO Q12H #14 tablet 12/25/20 Unknown Rx Dicyclomine [Bentyl] 20 mg PO Q12H PRN #14 tablet 12/25/20 Unknown Rx Ondansetron [Zofran Odt] 4 mg PO Q8HR PRN #14 tab.rapdis 12/25/20 Unknown Rx metroNIDAZOLE [Flagyl] 500 mg PO Q12HR #14 tab 12/25/20 Unknown Rx Allergies Allergy/AdvReac Type Severity Reaction Status Date / Time No Known Allergies Allergy Verified 11/19/19 18:31 ED Review of Systems Constitutional: denies: chills, fever Eyes: denies: eye pain, eye discharge, vision change ENT: denies: ear pain, throat pain Respiratory: denies: cough, shortness of breath, wheezing Cardiovascular: denies: chest pain, palpitations Endocrine: no symptoms reported Gastrointestinal: abdominal pain (Left lower quadrant pain), nausea. denies: diarrhea Genitourinary: denies: urgency, dysuria Musculoskeletal: denies: back pain, joint swelling, arthralgia Skin: denies: rash, lesions Neurological: denies: headache, weakness, paresthesias Psychiatric: denies: anxiety, depression Hematological/Lymphatic: denies: easy bleeding, easy bruising ED Past Medical Hx - Past Medical History Previous Medical History?: Yes Additional medical history: Clipped Appendix - Surgical History Past Surgical History?: Yes Hx Appendectomy: Yes (" CLIPPED APPENDIX", 2019) - Social History Smoking Status: Current Every Day Smoker Substance Use Type: Alcohol, Marijuana - Medications Home Medications: Home Medications Medication Instructions Recorded Confirmed Last Taken Type Docusate Sodium [Colace] 100 mg PO BID PRN #20 capsule 11/19/19 Unknown Rx Famotidine [Pepcid] 40 mg PO QHS #14 tablet 11/19/19 Unknown Rx Polyethylene Glycol 3350 [Miralax] 7 gm PO DAILY PRN #1 powder 11/19/19 Unknown Rx Simethicone [Gas-X] 62.5 mg PO Q6HR PRN #1 strip 11/19/19 Unknown Rx Ondansetron [Zofran Odt] 4 mg PO Q8HR PRN #12 tab.rapdis 01/01/20 Unknown Rx Famotidine [Pepcid] 20 mg PO BID #30 tablet 01/23/20 Unknown Rx Naproxen 500 mg PO BID PRN #30 tablet 01/23/20 Unknown Rx Albuterol Mdi (or & Nicu Only) 2 puff IH QID PRN #1 inhalation 02/16/20 Unknown Rx [ProAir HFA Inhaler] Azithromycin [Zithromax] 500 mg PO QDAY #5 tablet 02/16/20 Unknown Rx predniSONE [Deltasone] 50 mg PO QDAY #5 tab 02/16/20 Unknown Rx Dicyclomine [Bentyl] 20 mg PO QID PRN #20 tablet 08/23/20 Unknown Rx Ciprofloxacin HCl 500 mg PO Q12H #14 tablet 12/25/20 Unknown Rx Dicyclomine [Bentyl] 20 mg PO Q12H PRN #14 tablet 12/25/20 Unknown Rx Ondansetron [Zofran Odt] 4 mg PO Q8HR PRN #14 tab.rapdis 12/25/20 Unknown Rx metroNIDAZOLE [Flagyl] 500 mg PO Q12HR #14 tab 12/25/20 Unknown Rx ED Physical Exam - General Limitations: No Limitations General appearance: alert, in no apparent distress - Head Head exam: Present: atraumatic, normocephalic, normal inspection - Eye Eye exam: Present: normal appearance, PERRL, EOMI Pupils: Present: normal accommodation - ENT ENT exam: Present: normal exam, normal orophraynx, mucous membranes moist, TM's normal bilaterally, normal external ear exam - Neck Neck exam: Present: normal inspection, full ROM - Respiratory Respiratory exam: Present: normal lung sounds bilaterally. Absent: respiratory distress, wheezes, rales, rhonchi, chest wall tenderness, accessory muscle use, decreased breath sounds, prolonged expiratory - Cardiovascular Cardiovascular Exam: Present: normal rhythm, tachycardia, normal heart sounds. Absent: systolic murmur, diastolic murmur, rubs, gallop - GI/Abdominal GI/Abdominal exam: Present: soft, tenderness (Palpable left lower quadrant t enderness), normal bowel sounds. Absent: distended, guarding, rebound, hyperactive bowel sounds, hypoactive bowel sounds, organomegaly - Extremities Exam Extremities exam: Present: normal inspection, full ROM, normal capillary refill - Back Exam Back exam: Present: normal inspection, full ROM. Absent: tenderness, CVA t enderness (R), CVA tenderness (L), muscle spasm, paraspinal tenderness, vertebral tenderness - Neurological Exam Neurological exam: Present: alert, oriented X3, CN II-XII intact, normal gait, reflexes normal - Psychiatric Psychiatric exam: Present: normal affect, normal mood - Skin Skin exam: Present: warm, dry, intact, normal color. Absent: rash ED Medical Decision Making - Lab Data Result diagrams: 12/25/20 02:45 12/25/20 02:45 - Medical Decision Making This is a 45-year-old -[place] male with no past medical history presents to the ED with complaint of acute onset persistent severe left lower quadrant abdominal pain with nausea intermittently for the last 2 days, worse in the last 24 hours. Patient states that the pain is constant and persistent and worse with any movement or palpation of the area. In the ED, patient is alert and oriented x3 and is not in any distress but appears to be in pain. Patient was treated for pain in the ED and lab test results were reviewed and are all nonactionable. Abdomen pelvis CT scan with contrast is pending. At shift [facility] at 0700 hrs., the patient care was transferred to my colleague Mr. Kirit Antony NP, who shall review all lab test results and imaging reports and appropriately disposition the patient. - Differential Diagnosis Diverticulitis; colitis; constipation, kidney stone; UTI; SBO ED Disposition Clinical Impression: Acute abdominal pain in left lower quadrant, Colitis Disposition: DC- TO HOME OR SELFCARE Is pt being admited?: No Does the pt Need Aspirin: No Condition: Stable Instructions: Colitis Additional Instructions: Follow-up with a primary care and liquefaction plant operator doctor in 3-5 days or if symptoms worsen and continue return to emergency room as soon as possible. Prescriptions: Dicyclomine [Bentyl] 20 mg PO Q12H PRN #14 tablet PRN Reason: Abdominal pain Ciprofloxacin HCl 500 mg PO Q12H #14 tablet metroNIDAZOLE [Flagyl] 500 mg PO Q12HR #14 tab Ondansetron [Zofran Odt] 4 mg PO Q8HR PRN #14 tab.rapdis PRN Reason: Nausea Referrals: PRIMARY CAREMD [Primary Care Provider] - 3-5 Days REYMUNDO REYES MD [Staff Physician] - 3-5 Days [facility] [Provider Group] - 3-5 Days Forms: Work/School Release Form(ED) <KIRIT ANTONY - Last Filed: 12/25/20 09:19> ED Review of Systems ROS: Stated complaint: STOMACH PAIN Other details as noted in HPI ED Course Vital Signs 12/25/20 12/25/20 01:35 08:09 Temperature 97.3 F L Pulse Rate 106 H 86 Respiratory 18 18 Rate Blood Pressure 136/80 139/90 O2 Sat by Pulse 100 100 Oximetry - Reevaluation(s) Reevaluation #1: 12/25/20 07:48 Patient resting comfortably with no acute signs of distress. Vital signs are stable. Pending CT results. Reevaluation #2: 12/25/20 09:07 Patient tolerated p.o. challenge with apple juice with no nausea vomiting. Pain is under control. Ciprofloxacin and Flagyl administered by RN. Patient will be discharged with appropriate follow-up. ED Medical Decision Making - Lab Data Result diagrams: 12/25/20 02:45 12/25/20 02:45 Lab Results 12/25/20 12/25/20 12/25/20 Range/Units 02:45 02:45 Unknown WBC 6.5 (4.5-11.0) K/mm3 RBC 4.61 (3.65-5.03) M/mm3 Hgb 15.4 H (11.8-15.2) gm/dl Hct 44.0 (35.5-45.6) % MCV 96 H (84-94) fl MCH 33 H (28-32) pg MCHC 35 H (32-34) % RDW 14.0 (13.2-15.2) % Plt Count 247 (140-440) K/mm3 Lymph % (Auto) 28.7 (13.4-35.0) % [place] % (Auto) 13.8 H (0.0-7.3) % Eos % (Auto) 2.6 (0.0-4.3) % Baso % (Auto) 0.5 (0.0-1.8) % Lymph # (Auto) 1.9 (1.2-5.4) K/mm3 [place] # (Auto) 0.9 H (0.0-0.8) K/mm3 Eos # (Auto) 0.2 (0.0-0.4) K/mm3 Baso # (Auto) 0.0 (0.0-0.1) K/mm3 Seg Neutrophils % 54.4 (40.0-70.0) % Seg Neutrophils # 3.5 (1.8-7.7) K/mm3 Sodium 136 L (137-145) mmol/L Potassium 3.9 (3.6-5.0) mmol/L Chloride 97.1 L (98-107) mmol/L Carbon Dioxide 26 (22-30) mmol/L Anion Gap 17 mmol/L BUN 22 H (9-20) mg/dL Creatinine 1.4 H (0.8-1.3) mg/dL Estimated GFR > 60 ml/min BUN/Creatinine Ratio 16 % Glucose 67 L (75-100) mg/dL Calcium 9.0 (8.4-10.2) mg/dL Total Bilirubin 0.70 (0.1-1.2) mg/dL AST 53 H (5-40) units/L ALT 54 (7-56) units/L Alkaline Phosphatase 80 (35-129) units/L Total Protein 7.4 (6.3-8.2) g/dL Albumin 4.6 (3.9-5) g/dL Albumin/Globulin Ratio 1.6 % Lipase 29 (13-60) units/L Urine Color Yellow (Yellow) Urine Turbidity Clear (Clear) Urine pH 6.0 (5.0-7.0) Ur Specific Hydro 1.021 (1.003-1.030) Urine Protein <15 mg/dl (Negative) mg/dL Urine Glucose (UA) Neg (Negative) mg/dL Urine Ketones Neg (Negative) mg/dL Urine Blood Neg (Negative) Urine Nitrite Neg (Negative) Urine Bilirubin Neg (Negative) Urine Urobilinogen 2.0 (<2.0) mg/dL Ur Leukocyte Esterase Neg (Negative) Urine WBC (Auto) 1.0 (0.0-6.0) /HPF Urine RBC (Auto) 4.0 (0.0-6.0) /HPF Urine Bacteria (Auto) 1+ (Negative) /HPF Urine Mucus Few /HPF - Radiology Data [facility] [address] [place] [address] Cat Scan Report Signed Patient: JEREMY LEO MR#: [id number] : 1975 Acct:[id number] Age/Sex: 45 / M ADM Date: 12/25/20 Loc: ED Attending Dr: Ordering Physician: STEVE MCKAY Date of Service: 12/25/20 Procedure(s): CT abdomen pelvis w con Accession Number(s): [id number] cc: STEVE MCKAY CT ABDOMEN AND PELVIS WITH CONTRAST HISTORY: MAIN. Acute left lower quadrant abdominal pain COMPARISON: CT abdomen/pelvis from 11/22/2020 TECHNIQUE: CT images of the abdomen and pelvis were obtained following administration of intravenous contrast. All CT scans at this location are performed using CT dose reduction for ALARA by means of automated exposure control. CONTRAST: 100 ml of intravenous contrast administered. FINDINGS: Lungs/bones: Lung bases are clear. No acute osseous abnormality. Abdomen/pelvis: Exam is limited by lack of intraperitoneal fat. The liver is enlarged with no focal mass or biliary ductal dilatation identified. The gallbladder, spleen, pancreas, adrenals, kidneys, and proximal GI tract appear unremarkable. Urinary bladder and prostate are normal. No pelvic free fluid. There is questionable mild wall thickening along the descending colon as may be seen with colitis. Otherwise no acute inflammatory change in the colon. IMPRESSION: 1. Questionable mild wall thickening along the descending colon as may be seen with colitis. Otherwise no acute abnormality on this exam limited by lack of intraperitoneal fat. Signer Name: Vipul Barron MD Signed: 12/25/2020 8:04 AM Workstation Name: [id number] Transcribed By: JW Dictated By: Vipul Barron MD Electronically Authenticated By: Vipul Barron MD Signed Date/Time: 12/25/20 0804 DD/ 0800 TD/TT: - Medical Decision Making Patient was originally seen by Stephanie Law PA and signed out to me for pending CT scan. Patient is stable and was examined by me. There is no abdominal tenderness due to analgesic that was administered prior to me seeing patient. Patient stated feels much better. Labs obtained. UA obtained. CT of abdomen obtained and dictated by the radiologist. Patient is notified of the report with no questions noted by the patient. Vital signs are stable prior to discharge. Patient received medical treatment in the ED which patient stated symptoms has resovled and subsided. Was instructed note to operate any machinery due to possible drowsiness and stated someone will drive the patient home. A by mouth challenge has been obtained and patient tolerated well with no nausea vomiting. IV antibiotics initiated. Patient be discharged with Cipro Flagyl. Patient was also instructed to Follow-up with a primary care and liquefaction plant operator doctor in 3-5 days or if symptoms worsen and continue return to emergency room as soon as possible. At time of discharge, the patient does not seem toxic or ill in appearance. No acute signs of distress noted. Patient agrees to discharge treatment plan of care. No further questions noted by the patient. Critical care attestation.: If time is entered above; I have spent that time in minutes in the direct care of this critically ill patient, excluding procedure time. ED Disposition Time of Disposition: 09:13
[2020-12-25 07:11] LABS: Bacteria,Urine 1+ /HPF (Negative); Bilirubin,Urine NEG (Negative); Blood,Urine NEG (Negative); Color,Urine Yellow (Yellow); Mucus,Urine FEW /HPF; Protein,Urine <15 mg/dL mg/dL (Negative)
--- NOTE | 2020-12-25 08:08 | Cat Scan Report ---
CT ABDOMEN AND PELVIS WITH CONTRAST HISTORY: MAIN. Acute left lower quadrant abdominal pain COMPARISON: CT abdomen/pelvis from 11/22/2020 TECHNIQUE: CT images of the abdomen and pelvis were obtained following administration of intravenous contrast. All CT scans at this location are performed using CT dose reduction for ALARA by means of automated exposure control. CONTRAST: 100 ml of intravenous contrast administered. FINDINGS: Lungs/bones: Lung bases are clear. No acute osseous abnormality. Abdomen/pelvis: Exam is limited by lack of intraperitoneal fat. The liver is enlarged with no focal mass or biliary ductal dilatation identified. The gallbladder, spleen, pancreas, adrenals, kidneys, a nd proximal GI tract appear unremarkable. Urinary bladder and prostate are normal. No pelvic free fluid. There is questionable mild wall thickening along the descending colon as may be seen with colitis. Ot herwise no acute inflammatory change in the colon. IMPRESSION: 1. Questionable mild wall thickening along the descending colon as may be seen with colitis. Otherwis e no acute abnormality on this exam limited by lack of intraperitoneal fat. Signer Name: Vipul Barron MD Signed: 12/25/2020 8:04 AM Workstation Name: [id number]
[2020-12-25 08:11] VITALS: BP 139/90
[2020-12-25] MEDS ORDERED: metroNIDAZOLE/NS 500 MG/100 ML 500 MG/100 ML BAG IV ONE (08:31)
== END 2020-12-25 10:18 | disposition home or self-care (01) ==
LOC: ED 00:42
DX: K52.9 Noninfective gastroenteritis and colitis, unspecified (principal); Z98.890 Other specified postprocedural states; Z79.899 Other long term (current) drug therapy
CPT/HCPCS: 36415; 74177; 80053; 81001; 83690; 85025; 96361; 96365; 96368; 96375; 99284; J1956; J2270; J2405; J7030; Q9967

== ENCOUNTER 2021-01-17 16:43 | Emergency (ER) | payer SELFPAY ==
[2021-01-17 18:36] VITALS: BP 120/85
[2021-01-17] MEDS ORDERED: SODIUM CHLORIDE 0.9% 1000 ML 1,000 ML IV ONE (19:58)
[2021-01-17] MEDS ORDERED: FAMOTIDINE 20 MG/2 ML INJ IV ONE (19:58)
[2021-01-17] MEDS ORDERED: ONDANSETRON 4 MG/2 ML INJ IV ONE (19:58)
[2021-01-17 20:32] LABS: Bilirubin,Urine NEG (Negative); Blood,Urine NEG (Negative); Color,Urine Yellow (Yellow); Mucus,Urine 2+ /HPF
[2021-01-17 20:43] LABS: Basophils % (Auto) 0.8 % (0.0-1.8); Eosinophils # (Auto) 0.3 K/mm3 (0.0-0.4); Eosinophils % (Auto) 5.2 % (0.0-4.3); Hematocrit 44.7 % (35.5-45.6); Hemoglobin 15.4 gm/dl (11.8-15.2); Lymphocytes # (Auto) 1.9 K/mm3 (1.2-5.4); Lymphocytes % (Auto) 35.6 % (13.4-35.0); Mean Corpuscular HGB Conc 34 % (32-34); Mean Corpuscular Volume 96 fl (84-94); Monocytes # (Auto) 0.6 K/mm3 (0.0-0.8); Monocytes % (Auto) 11.1 % (0.0-7.3); Platelet Count 245 K/mm3 (140-440); Red Blood Count 4.66 M/mm3 (3.65-5.03)
[2021-01-17 20:55] LABS: Alanine Aminotransferase 31 units/L (7-56); Albumin 4.4 g/dL (3.9-5); BUN/Creatinine Ratio 10; Blood Urea Nitrogen 11 mg/dL (9-20); Calcium 9.6 mg/dL (8.4-10.2); Hemolysis Index 103
--- NOTE | 2021-01-17 20:55 | Emergency Department Report ---
ED Abdominal Pain HPI - General Chief Complaint: Abdominal Pain Stated Complaint: ABDOMINAL PAIN Source: patient Mode of arrival: Ambulatory Limitations: No Limitations - History of Present Illness Initial Comments: Patient is a 45-year-old -[place] male with no past medical history presents to the ED with complaint of acute onset persistent diffuse abdominal pain, nausea and diarrhea for the last 6 days intermittently, and which got worse in the last 2 days. Patient states that he has also not had any appetite to eat and now feels generally weak. Patient denies dizziness, syncope, chest pain, shortness of breath, fever, chills, cough, sore throat, nasal and sinus congestion, headache, hematuria, dysuria, urinary frequency and urgency, hematemesis, vomiting or hematochezia. MD Complaint: abdominal pain (diffuse), other (diarrhea, generalized weakness, lack of appetite) -: Sudden, days(s) (6) Location: diffuse Radiation: none Migration to: no migration Severity: moderate Severity scale (0 -10): 5 Quality: cramping, aching Consistency: constant Improves With: nothing Worsens With: nothing Associated Symptoms: denies other symptoms, nausea, diarrhea, anorexia. denies: vomiting, fever, chills, constipation, dysuria, hematemesis, hematochezia, melena, hematuria, syncope - Related Data Previous Rx's Medication Instructions Recorded Last Taken Type Docusate Sodium [Colace] 100 mg PO BID PRN #20 capsule 11/19/19 Unknown Rx Famotidine [Pepcid] 40 mg PO QHS #14 tablet 11/19/19 Unknown Rx Polyethylene Glycol 3350 [Miralax] 7 gm PO DAILY PRN #1 powder 11/19/19 Unknown Rx Simethicone [Gas-X] 62.5 mg PO Q6HR PRN #1 strip 11/19/19 Unknown Rx Ondansetron [Zofran Odt] 4 mg PO Q8HR PRN #12 tab.rapdis 01/01/20 Unknown Rx Famotidine [Pepcid] 20 mg PO BID #30 tablet 01/23/20 Unknown Rx Naproxen 500 mg PO BID PRN #30 tablet 01/23/20 Unknown Rx Albuterol Mdi (or & Nicu Only) 2 puff IH QID PRN #1 inhalation 02/16/20 Unknown Rx [ProAir HFA Inhaler] Azithromycin [Zithromax] 500 mg PO QDAY #5 tablet 02/16/20 Unknown Rx predniSONE [Deltasone] 50 mg PO QDAY #5 tab 02/16/20 Unknown Rx Dicyclomine [Bentyl] 20 mg PO QID PRN #20 tablet 08/23/20 Unknown Rx Ciprofloxacin HCl 500 mg PO Q12H #14 tablet 12/25/20 Unknown Rx Dicyclomine [Bentyl] 20 mg PO Q12H PRN #14 tablet 12/25/20 Unknown Rx Ondansetron [Zofran Odt] 4 mg PO Q8HR PRN #14 tab.rapdis 12/25/20 Unknown Rx metroNIDAZOLE [Flagyl] 500 mg PO Q12HR #14 tab 12/25/20 Unknown Rx Dicyclomine [Bentyl] 20 mg PO Q6H PRN #24 tablet 01/17/21 Unknown Rx Famotidine [Pepcid] 20 mg PO BID #60 tablet 01/17/21 Unknown Rx Ondansetron [Zofran Odt] 4 mg PO Q6HR PRN #15 tab.rapdis 01/17/21 Unknown Rx Allergies Allergy/AdvReac Type Severity Reaction Status Date / Time No Known Allergies Allergy Verified 11/19/19 18:31 ED Review of Systems ROS: Stated complaint: ABDOMINAL PAIN Other details as noted in HPI Constitutional: malaise, weakness. denies: chills, fever Eyes: denies: eye pain, eye discharge, vision change ENT: denies: ear pain, throat pain Respiratory: denies: cough, shortness of breath, wheezing Cardiovascular: denies: chest pain, palpitations Endocrine: no symptoms reported Gastrointestinal: abdominal pain, nausea, diarrhea Genitourinary: denies: urgency, dysuria Musculoskeletal: denies: back pain, joint swelling, arthralgia Skin: denies: rash, lesions Neurological: denies: headache, weakness, paresthesias Psychiatric: denies: anxiety, depression Hematological/Lymphatic: denies: easy bleeding, easy bruising ED Past Medical Hx - Past Medical History Previous Medical History?: Yes Additional medical history: Clipped Appendix - Surgical History Hx Appendectomy: Yes (" CLIPPED APPENDIX", 2019) - Social History Smoking Status: Never Smoker - Medications Home Medications: Home Medications Medication Instructions Recorded Confirmed Last Taken Type Docusate Sodium [Colace] 100 mg PO BID PRN #20 capsule 11/19/19 Unknown Rx Famotidine [Pepcid] 40 mg PO QHS #14 tablet 11/19/19 Unknown Rx Polyethylene Glycol 3350 [Miralax] 7 gm PO DAILY PRN #1 powder 11/19/19 Unknown Rx Simethicone [Gas-X] 62.5 mg PO Q6HR PRN #1 strip 11/19/19 Unknown Rx Ondansetron [Zofran Odt] 4 mg PO Q8HR PRN #12 tab.rapdis 01/01/20 Unknown Rx Famotidine [Pepcid] 20 mg PO BID #30 tablet 01/23/20 Unknown Rx Naproxen 500 mg PO BID PRN #30 tablet 01/23/20 Unknown Rx Albuterol Mdi (or & Nicu Only) 2 puff IH QID PRN #1 inhalation 02/16/20 Unknown Rx [ProAir HFA Inhaler] Azithromycin [Zithromax] 500 mg PO QDAY #5 tablet 02/16/20 Unknown Rx predniSONE [Deltasone] 50 mg PO QDAY #5 tab 02/16/20 Unknown Rx Dicyclomine [Bentyl] 20 mg PO QID PRN #20 tablet 08/23/20 Unknown Rx Ciprofloxacin HCl 500 mg PO Q12H #14 tablet 12/25/20 Unknown Rx Dicyclomine [Bentyl] 20 mg PO Q12H PRN #14 tablet 12/25/20 Unknown Rx Ondansetron [Zofran Odt] 4 mg PO Q8HR PRN #14 tab.rapdis 12/25/20 Unknown Rx metroNIDAZOLE [Flagyl] 500 mg PO Q12HR #14 tab 12/25/20 Unknown Rx Dicyclomine [Bentyl] 20 mg PO Q6H PRN #24 tablet 01/17/21 Unknown Rx Famotidine [Pepcid] 20 mg PO BID #60 tablet 01/17/21 Unknown Rx Ondansetron [Zofran Odt] 4 mg PO Q6HR PRN #15 tab.rapdis 01/17/21 Unknown Rx ED Physical Exam - General Limitations: No Limitations General appearance: alert, in no apparent distress - Head Head exam: Present: atraumatic, normocephalic, normal inspection - Eye Eye exam: Present: normal appearance, PERRL, EOMI Pupils: Present: normal accommodation - ENT ENT exam: Present: normal exam, normal orophraynx, mucous membranes moist, TM's normal bilaterally, normal external ear exam - Neck Neck exam: Present: normal inspection, full ROM - Respiratory Respiratory exam: Present: normal lung sounds bilaterally. Absent: respiratory distress, wheezes, rales, rhonchi, stridor, chest wall tenderness, accessory muscle use, decreased breath sounds, prolonged expiratory - Cardiovascular Cardiovascular Exam: Present: regular rate, normal rhythm, normal heart sounds. Absent: systolic murmur, diastolic murmur, rubs, gallop - GI/Abdominal GI/Abdominal exam: Present: soft, normal bowel sounds. Absent: tenderness, guarding, rebound, hyperactive bowel sounds, hypoactive bowel sounds, organomegaly - Extremities Exam Extremities exam: Present: normal inspection, full ROM, normal capillary refill - Back Exam Back exam: Present: normal inspection, full ROM. Absent: tenderness, CVA tenderness (R), CVA tenderness (L), muscle spasm, paraspinal tenderness, vertebral tenderness - Neurological Exam Neurological exam: Present: alert, oriented X3, CN II-XII intact, normal gait, reflexes normal - Psychiatric Psychiatric exam: Present: normal affect, normal mood - Skin Skin exam: Present: warm, dry, intact, normal color. Absent: rash ED Course Vital Signs 01/17/21 18:34 Temperature 98.0 F Pulse Rate 97 H Respiratory 20 Rate Blood Pressure 120/85 O2 Sat by Pulse 100 Oximetry ED Medical Decision Making - Lab Data Result diagrams: 01/17/21 20:12 01/17/21 20:12 - Medical Decision Making This is a 45-year-old -[place] male with no past medical history presents to the ED with complaint of acute onset persistent diffuse abdominal pain, nausea and diarrhea for the last 6 days intermittently, and which got worse in the last 2 days. Patient states that he has also not had any appetite to eat and now feels generally weak. In the ED, patient is alert and oriented x3 and is not in any distress with normal vital signs. Lab test results were reviewed and are all nonactionable. Patient was treated in the ED with antacids, normal saline 1 L IV bolus x1, antiemetics and was discharged home on medications. Patient was advised to follow-up with his primary care physician in 5 to 7 days for reevaluation or return to the ED immediately if symptoms get worse. - Differential Diagnosis Gastroenteritis; GERD; Pancreatitis; Cholelithiasis; Colitis Critical care attestation.: If time is entered above; I have spent that time in minutes in the direct care of this critically ill patient, excluding procedure time. ED Disposition Clinical Impression: Abdominal pain in male, Viral gastroenteritis Disposition: TO HOME OR SELFCARE Is pt being admited?: No Condition: Stable Instructions: Viral Gastroenteritis, Adult, [id number], Abdominal Pain, Adult, [id number] Additional Instructions: Take medication with food, drink plenty of fluids and follow-up with your primary care physician in 5 to 7 days for reevaluation. Return to the ED immediately if symptoms get worse. Prescriptions: Dicyclomine [Bentyl] 20 mg PO Q6H PRN #24 tablet PRN Reason: Abdominal pain Famotidine [Pepcid] 20 mg PO BID #60 tablet Ondansetron [Zofran Odt] 4 mg PO Q6HR PRN #15 tab.rapdis PRN Reason: Nausea Referrals: [facility] [Provider Group] - 3-5 Days Time of Disposition: 20:53 Print Language: SPANISH
== END 2021-01-17 23:15 | disposition home or self-care (01) ==
LOC: ED 16:43
DX: A08.4 Viral intestinal infection, unspecified (principal); Z90.49 Acquired absence of other specified parts of digestive tract; Z98.890 Other specified postprocedural states; Z79.899 Other long term (current) drug therapy
CPT/HCPCS: 36415; 80053; 81001; 85025; 96361; 96374; 96375; 99283; J2405; J7030

== ENCOUNTER 2021-01-18 17:41 | Emergency (ER) | payer SELFPAY ==
[2021-01-18 18:42] VITALS: BP 117/80
--- NOTE | 2021-01-18 18:42 | Event Note ---
ED Screening Note ED Screening Note: pt tearful in triage co abd pain last drink 2 days ago no n/v/d no fever or chills pmh appy rx none etoh cig This initial assessment/diagnostic orders/clinical plan/treatment(s) is/are subject to change based on patients health status, clinical progression and re- assessment by fellow clinical providers in the ED. Further treatment and workup at subsequent clinical providers discretion. Patient/guardian urged not to elope from the ED as their condition may be serious if not clinically assessed and managed. Initial orders include: labs ua
[2021-01-18 19:17] LABS: Basophils % (Auto) 0.8 % (0.0-1.8); Eosinophils # (Auto) 0.3 K/mm3 (0.0-0.4); Eosinophils % (Auto) 7.3 % (0.0-4.3); Hemoglobin 14.9 gm/dl (11.8-15.2); Lymphocytes # (Auto) 1.5 K/mm3 (1.2-5.4); Lymphocytes % (Auto) 35.7 % (13.4-35.0); Mean Corpuscular HGB Conc 35 % (32-34); Mean Corpuscular Volume 96 fl (84-94); Monocytes # (Auto) 0.3 K/mm3 (0.0-0.8); Monocytes % (Auto) 8.1 % (0.0-7.3); Platelet Count 222 K/mm3 (140-440); Red Blood Count 4.49 M/mm3 (3.65-5.03); Red Cell Distribution Width 14.3 % (13.2-15.2)
[2021-01-18 19:18] LABS: Bilirubin,Urine NEG (Negative); Blood,Urine NEG (Negative); Color,Urine Yellow (Yellow); Mucus,Urine FEW /HPF; Protein,Urine <15 mg/dL mg/dL (Negative)
[2021-01-18 19:35] LABS: Alanine Aminotransferase 30 units/L (7-56); Albumin 4.1 g/dL (3.9-5); BUN/Creatinine Ratio 15; Blood Urea Nitrogen 20 mg/dL (9-20); Hemolysis Index 9
[2021-01-18] MEDS ORDERED: diphenhydrAMINE 50 MG/ML VIAL IV ONE (19:48)
[2021-01-18] MEDS ORDERED: DICYCLOMINE 20 MG TAB PO ONE (19:48)
[2021-01-18] MEDS ORDERED: FAMOTIDINE 20 MG/2 ML INJ IV ONE (19:48)
[2021-01-18] MEDS ORDERED: METOCLOPRAMIDE 10 MG/2 ML INJ IV ONE (19:48)
[2021-01-18] MEDS ORDERED: SODIUM CHLORIDE 0.9% 1000 ML 1,000 ML IV ONE (19:48)
--- NOTE | 2021-01-18 21:13 | Cat Scan Report ---
CT ABDOMEN AND PELVIS WITH CONTRAST INDICATION / CLINICAL INFORMATION: abd pain with n/v x1wk [id number] 100ml. TECHNIQUE: Axial CT images were obtained through the abdomen and pelvis following the administration of intraven ous contrast. All CT scans at this location are performed using CT dose reduction for ALARA by means of automated exposure control. COMPARISON: CT abdomen/pelvis dated 12/25/2020. FINDINGS: LOWER CHEST: No significant abnormality. LIVER: No significant abnormality. GALLBLADDER: No significant abnormality. PANCREAS: No significant abnormality. SPLEEN: No significant abnormality. ADRENALS: No significant abnormality. KIDNEYS / URETERS: No significant abnormality. URINARY BLADDER: No significant abnormality. REPRODUCTIVE ORGANS: No significant abnormality. STOMACH / SMALL BOWEL: There are several loops of small bowel within the lower abdomen and pelvis whi ch are fluid-filled and demonstrate mild mucosal enhancement. COLON: No significant abnormality. APPENDIX: Surgically absent. PERITONEUM: No free fluid. No free air. No fluid collection. LYMPH NODES: No significant adenopathy. AORTA / ARTERIES: No significant abnormality. IVC / VEINS: No significant abnormality. SKELETAL SYSTEM: No significant abnormality. ADDITIONAL FINDINGS: None. IMPRESSION: 1. There are loops of small bowel within the lower abdomen and pelvis which are fluid-filled and demo nstrate mild mucosal enhancement. This finding can be seen in the setting of a mild enteritis, for wh ich inflammatory and infectious etiologies should be considered. Signer Name: Skip Sanz MD Signed: 01/18/2021 9:09 PM Workstation Name: [id number]
--- NOTE | 2021-01-18 21:21 | Emergency Department Report ---
ED Abdominal Pain HPI - General Chief Complaint: Abdominal Pain Stated Complaint: ABDOMINAL PAIN Time Seen by Provider: 01/18/21 18:42 Source: patient Mode of arrival: Ambulatory Limitations: No Limitations - History of Present Illness Initial Comments: This is a 45-year-old male nontoxic, well nourished in appearance, no acute signs of distress presents to the ED with c/o of acute on chronic intermittent nausea and vomiting and abdominal pain 1 week. Patient was seen yesterday but stated symptoms has worsened. Patient denies feeling his medication that was prescribed to him yesterday. Patient describes vomiting as food content and yellow gastric acid. Patient describes abdominal pain as cramping and aching with level of 8/10 primarily to diffuse abdomen. Patient denies chest pain, short of breath, fever, hemoptysis, blood in stool, chills, headache, stiff neck, numbness or tingling. Patient denies any diarrhea or constipation. Den ies any blood in stool. Patient denies any recent travels. Patient denies any drug allergies. MD Complaint: abdominal pain -: week(s) Location: diffuse Radiation: none Migration to: no migration Severity: mild Severity scale (0 -10): 8 Quality: cramping, aching Consistency: constant Improves With: nothing Worsens With: nothing Associated Symptoms: nausea, vomiting. denies: diarrhea, fever, chills, constipation, dysuria, hematemesis, hematochezia, melena, hematuria, anorexia, syncope - Related Data Previous Rx's Medication Instructions Recorded Last Taken Type Docusate Sodium [Colace] 100 mg PO BID PRN #20 capsule 11/19/19 Unknown Rx Famotidine [Pepcid] 40 mg PO QHS #14 tablet 11/19/19 Unknown Rx Polyethylene Glycol 3350 [Miralax] 7 gm PO DAILY PRN #1 powder 11/19/19 Unknown Rx Simethicone [Gas-X] 62.5 mg PO Q6HR PRN #1 strip 11/19/19 Unknown Rx Ondansetron [Zofran Odt] 4 mg PO Q8HR PRN #12 tab.rapdis 01/01/20 Unknown Rx Famotidine [Pepcid] 20 mg PO BID #30 tablet 01/23/20 Unknown Rx Naproxen 500 mg PO BID PRN #30 tablet 01/23/20 Unknown Rx Albuterol Mdi (or & Nicu Only) 2 puff IH QID PRN #1 inhalation 02/16/20 Unknown Rx [ProAir HFA Inhaler] Azithromycin [Zithromax] 500 mg PO QDAY #5 tablet 02/16/20 Unknown Rx predniSONE [Deltasone] 50 mg PO QDAY #5 tab 02/16/20 Unknown Rx Dicyclomine [Bentyl] 20 mg PO QID PRN #20 tablet 08/23/20 Unknown Rx Ciprofloxacin HCl 500 mg PO Q12H #14 tablet 12/25/20 Unknown Rx Dicyclomine [Bentyl] 20 mg PO Q12H PRN #14 tablet 12/25/20 Unknown Rx Ondansetron [Zofran Odt] 4 mg PO Q8HR PRN #14 tab.rapdis 12/25/20 Unknown Rx metroNIDAZOLE [Flagyl] 500 mg PO Q12HR #14 tab 12/25/20 Unknown Rx Dicyclomine [Bentyl] 20 mg PO Q6H PRN #24 tablet 01/17/21 Unknown Rx Famotidine [Pepcid] 20 mg PO BID #60 tablet 01/17/21 Unknown Rx Ondansetron [Zofran Odt] 4 mg PO Q6HR PRN #15 tab.rapdis 01/17/21 Unknown Rx Ciprofloxacin HCl 500 mg PO Q12H #14 tablet 01/18/21 Unknown Rx Metoclopramide [Reglan] 10 mg PO TID PRN #12 tab 01/18/21 Unknown Rx metroNIDAZOLE [Flagyl] 500 mg PO Q12HR #14 tab 01/18/21 Unknown Rx Allergies Allergy/AdvReac Type Severity Reaction Status Date / Time No Known Allergies Allergy Verified 11/19/19 18:31 ED Review of Systems ROS: Stated complaint: ABDOMINAL PAIN Other details as noted in HPI Comment: All other systems reviewed and negative Constitutional: denies: chills, fever Eyes: denies: eye pain, eye discharge, vision change ENT: denies: ear pain, throat pain Respiratory: denies: cough, shortness of breath, wheezing Cardiovascular: denies: chest pain, palpitations Endocrine: no symptoms reported Gastrointestinal: abdominal pain, nausea, vomiting. denies: diarrhea, constipation, hematemesis, melena, hematochezia Genitourinary: denies: urgency, dysuria Musculoskeletal: denies: back pain, joint swelling, arthralgia Skin: denies: rash, lesions Neurological: denies: headache, weakness, paresthesias Psychiatric: denies: anxiety, depression Hematological/Lymphatic: denies: easy bleeding, easy bruising ED Past Medical Hx - Past Medical History Previous Medical History?: No Additional medical history: Clipped Appendix - Surgical History Hx Appendectomy: Yes (" CLIPPED APPENDIX", 2019) - Social History Smoking Status: Never Smoker - Medications Home Medications: Home Medications Medication Instructions Recorded Confirmed Last Taken Type Docusate Sodium [Colace] 100 mg PO BID PRN #20 capsule 11/19/19 Unknown Rx Famotidine [Pepcid] 40 mg PO QHS #14 tablet 11/19/19 Unknown Rx Polyethylene Glycol 3350 [Miralax] 7 gm PO DAILY PRN #1 powder 11/19/19 Unknown Rx Simethicone [Gas-X] 62.5 mg PO Q6HR PRN #1 strip 11/19/19 Unknown Rx Ondansetron [Zofran Odt] 4 mg PO Q8HR PRN #12 tab.rapdis 01/01/20 Unknown Rx Famotidine [Pepcid] 20 mg PO BID #30 tablet 01/23/20 Unknown Rx Naproxen 500 mg PO BID PRN #30 tablet 01/23/20 Unknown Rx Albuterol Mdi (or & Nicu Only) 2 puff IH QID PRN #1 inhalation 02/16/20 Unknown Rx [ProAir HFA Inhaler] Azithromycin [Zithromax] 500 mg PO QDAY #5 tablet 02/16/20 Unknown Rx predniSONE [Deltasone] 50 mg PO QDAY #5 tab 02/16/20 Unknown Rx Dicyclomine [Bentyl] 20 mg PO QID PRN #20 tablet 08/23/20 Unknown Rx Ciprofloxacin HCl 500 mg PO Q12H #14 tablet 12/25/20 Unknown Rx Dicyclomine [Bentyl] 20 mg PO Q12H PRN #14 tablet 12/25/20 Unknown Rx Ondansetron [Zofran Odt] 4 mg PO Q8HR PRN #14 tab.rapdis 12/25/20 Unknown Rx metroNIDAZOLE [Flagyl] 500 mg PO Q12HR #14 tab 12/25/20 Unknown Rx Dicyclomine [Bentyl] 20 mg PO Q6H PRN #24 tablet 01/17/21 Unknown Rx Famotidine [Pepcid] 20 mg PO BID #60 tablet 01/17/21 Unknown Rx Ondansetron [Zofran Odt] 4 mg PO Q6HR PRN #15 tab.rapdis 01/17/21 Unknown Rx Ciprofloxacin HCl 500 mg PO Q12H #14 tablet 01/18/21 Unknown Rx Metoclopramide [Reglan] 10 mg PO TID PRN #12 tab 01/18/21 Unknown Rx metroNIDAZOLE [Flagyl] 500 mg PO Q12HR #14 tab 01/18/21 Unknown Rx ED Physical Exam - General Limitations: No Limitations General appearance: alert, in no apparent distress - Head Head exam: Present: atraumatic, normocephalic - Eye Eye exam: Present: normal appearance - Neck Neck exam: Present: normal inspection, full ROM. Absent: tenderness, meningismus, lymphadenopathy - Respiratory Respiratory exam: Present: normal lung sounds bilaterally. Absent: respiratory distress, wheezes, rales, rhonchi, stridor, chest wall tenderness, accessory muscle use, decreased breath sounds, prolonged expiratory - Cardiovascular Cardiovascular Exam: Present: regular rate, normal rhythm, normal heart sounds. Absent: bradycardia, tachycardia, irregular rhythm, systolic murmur, diastolic murmur, rubs, gallop - GI/Abdominal GI/Abdominal exam: Present: soft, tenderness (Diffuse), normal bowel sounds. Absent: distended, guarding, rebound, rigid, diminished bowel sounds - Extremities Exam Extremities exam: Present: normal inspection, full ROM - Back Exam Back exam: Present: normal inspection, full ROM. Absent: tenderness, CVA tenderness (R), CVA tenderness (L), muscle spasm, paraspinal tenderness, vertebral tenderness, rash noted - Neurological Exam Neurological exam: Present: alert, oriented X3, normal gait - Psychiatric Psychiatric exam: Present: normal affect, normal mood - Skin Skin exam: Present: warm, dry, intact, normal color. Absent: rash ED Course Vital Signs 01/18/21 18:41 Temperature 98.4 F Pulse Rate 92 H Respiratory 18 Rate Blood Pressure 117/80 [Right] O2 Sat by Pulse 98 Oximetry - Reevaluation(s) Reevaluation #1: 01/18/21 21:21 Patient is speaking in full sentences with no signs of distress noted. ED Medical Decision Making - Lab Data Result diagrams: 01/18/21 18:51 01/18/21 21:24 Lab Results 01/18/21 01/18/21 01/18/21 Range/Units 18:51 18:51 18:59 WBC 4.2 L (4.5-11.0) K/mm3 RBC 4.49 (3.65-5.03) M/mm3 Hgb 14.9 (11.8-15.2) gm/dl Hct 43.0 (35.5-45.6) % MCV 96 H (84-94) fl MCH 33 H (28-32) pg MCHC 35 H (32-34) % RDW 14.3 (13.2-15.2) % Plt Count 222 (140-440) K/mm3 Lymph % (Auto) 35.7 H (13.4-35.0) % [place] % (Auto) 8.1 H (0.0-7.3) % Eos % (Auto) 7.3 H (0.0-4.3) % Baso % (Auto) 0.8 (0.0-1.8) % Lymph # (Auto) 1.5 (1.2-5.4) K/mm3 Hitchcock # (Auto) 0.3 (0.0-0.8) K/mm3 Eos # (Auto) 0.3 (0.0-0.4) K/mm3 Baso # (Auto) 0.0 (0.0-0.1) K/mm3 Seg Neutrophils % 48.1 (40.0-70.0) % Seg Neutrophils # 2.0 (1.8-7.7) K/mm3 Sodium 141 (137-145) mmol/L Potassium 4.5 (3.6-5.0) mmol/L Chloride 103.1 (98-107) mmol/L Carbon Dioxide 31 H D (22-30) mmol/L Anion Gap 11 mmol/L BUN 20 (9-20) mg/dL Creatinine 1.3 (0.8-1.3) mg/dL Estimated GFR > 60 ml/min BUN/Creatinine Ratio 15 % Glucose 71 L (75-100) mg/dL Calcium 9.0 (8.4-10.2) mg/dL Total Bilirubin 0.20 (0.1-1.2) mg/dL AST 22 (5-40) units/L ALT 30 (7-56) units/L Alkaline Phosphatase 90 (35-129) units/L Total Protein 6.5 (6.3-8.2) g/dL Albumin 4.1 (3.9-5) g/dL Albumin/Globulin Ratio 1.7 % Lipase 32 (13-60) units/L Urine Color Yellow (Yellow) Urine Turbidity Clear (Clear) Urine pH 5.0 (5.0-7.0) Ur Specific [place] 1.024 (1.003-1.030) Urine Protein <15 mg/dl (Negative) mg/dL Urine Glucose (UA) Neg (Negative) mg/dL Urine Ketones Neg (Negative) mg/dL Urine Blood Neg (Negative) Urine Nitrite Neg (Negative) Urine Bilirubin Neg (Negative) Urine Urobilinogen 2.0 (<2.0) mg/dL Ur Leukocyte Esterase Neg (Negative) Urine WBC (Auto) 1.0 (0.0-6.0) /HPF Urine RBC (Auto) 2.0 (0.0-6.0) /HPF Urine Mucus Few /HPF 01/18/ Range/Units 21:24 WBC (4.5-11.0) K/mm3 RBC (3.65-5.03) M/mm3 Hgb (11.8-15.2) gm/dl Hct (35.5-45.6) % MCV (84-94) fl MCH (28-32) pg MCHC (32-34) % RDW (13.2-15.2) % Plt Count (140-440) K/mm3 Lymph % (Auto) (13.4-35.0) % Hitchcock % (Auto) (0.0-7.3) % Eos % (Auto) (0.0-4.3) % Baso % (Auto) (0.0-1.8) % Lymph # (Auto) (1.2-5.4) K/mm3 Hitchcock # (Auto) (0.0-0.8) K/mm3 Eos # (Auto) (0.0-0.4) K/mm3 Baso # (Auto) (0.0-0.1) K/mm3 Seg Neutrophils % (40.0-70.0) % Seg Neutrophils # (1.8-7.7) K/mm3 Sodium 138 (137-145) mmol/L Potassium 4.3 (3.6-5.0) mmol/L Chloride 104.0 (98-107) mmol/L Carbon Dioxide 25 (22-30) mmol/L Anion Gap 13 mmol/L BUN 20 (9-20) mg/dL Creatinine 1.1 (0.8-1.3) mg/dL Estimated GFR > 60 ml/min BUN/Creatinine Ratio 18 % Glucose 93 (75-100) mg/dL Calcium 8.3 L (8.4-10.2) mg/dL Total Bilirubin (0.1-1.2) mg/dL AST (5-40) units/L ALT (7-56) units/L Alkaline Phosphatase (35-129) units/L Total Protein (6.3-8.2) g/dL Albumin (3.9-5) g/dL Albumin/Globulin Ratio % Lipase (13-60) units/L Urine Color (Yellow) Urine Turbidity (Clear) Urine pH (5.0-7.0) Ur Specific [place] (1.003-1.030) Urine Protein (Negative) mg/dL Urine Glucose (UA) (Negative) mg/dL Urine Ketones (Negative) mg/dL Urine Blood (Negative) Urine Nitrite (Negative) Urine Bilirubin (Negative) Urine Urobilinogen (<2.0) mg/dL Ur Leukocyte Esterase (Negative) Urine WBC (Auto) (0.0-6.0) /HPF Urine RBC (Auto) (0.0-6.0) /HPF Urine Mucus /HPF - Radiology Data [facility] [address] [place] [address] Cat Scan Report Signed Patient: JEREMY LEO MR#: [id number] : 1975 Acct:[id number] Age/Sex: 45 / M ADM Date: 01/18/21 Loc: ED Attending Dr: Ordering Physician: NELLY ANTONY NP Date of Service: 01/18/21 Pr ocedure(s): CT abdomen pelvis w con Accession Number(s): [id number] cc: NELLY ANTONY NP CT ABDOMEN AND PELVIS WITH CONTRAST INDICATION / CLINICAL INFORMATION: abd pain with n/v [id number] 100ml. TECHNIQUE: Axial CT images were obtained through the abdomen and pelvis following the administration of intravenous contrast. All CT scans at this location are performed using CT dose reduction for ALARA by means of automated exposure control. COMPARISON: CT abdomen/pelvis dated 12/25/2020. FINDINGS: LOWER CHEST: No significant abnormality. LIVER: No significant abnormality. GALLBLADDER: No significant abnormality. PANCREAS: No significant abnormality. SPLEEN: No significant abnormality. ADRENALS: No significant abnormality. KIDNEYS / URETERS: No significant abnormality. URINARY BLADDER: No significant abnormality. REPRODUCTIVE ORGANS: No significant abnormality. STOMACH / SMALL BOWEL: There are several loops of small bowel within the lower abdomen and pelvis which are fluid-filled and demonstrate mild mucosal enhancement. COLON: No significant abnormality. APPENDIX: Surgically absent. PERITONEUM: No free fluid. No free air. No fluid collection. LYMPH NODES: No significant adenopathy. AORTA / ARTERIES: No significant abnormality. IVC / VEINS: No significant abnormality. SKELETAL SYSTEM: No significant abnormality. ADDITIONAL FINDINGS: None. IMPRESSION: 1. There are loops of small bowel within the lower abdomen and pelvis which are fluid-filled and demonstrate mild mucosal enhancement. This finding can be seen in the setting of a mild enteritis, for which inflammatory and infectious etiologies should be considered. Signer Name: Clint Sanz MD Signed: 01/18/2021 9:09 PM Workstation Name: [id number] Transcribed By: Dictated By: CLINT SANZ Electronically Authenticated By: CLINT SANZ Signed Date/Time: 01/18/212108 DD/ 05 TD/TT: - Medical Decision Making This is a 45-year-old male that presents with abdominal pain with nausea vomiting. Patient is stable and was examined by me. Labs obtained. UA obtained. CT of abdomen obtained and dictated by the radiologist. Patient is notified of the report with no questions noted by the patient. Vital signs are stable prior to discharge. Patient received medical treatment in the ED which patient stated symptoms has resovled and subsided. Was instructed note to operate any machinery due to possible drowsiness and stated someone will drive the patient home. A by mouth challenge has been obtained and patient tolerated well with no nausea vomiting. Due to ongoing and worsening symptoms of abdominal pain with nausea vomiting, I will treat patient empirically with Flagyl and ciprofloxacin due to questionable infectious process in abdomen. Patient was also instructed to Follow-up with a nurse orthopaedic doctor in 3-5 days or if symptoms worsen and continue return to emergency room as soon as possible. At time of discharge, the patient does not seem toxic or ill in appearance. No acute signs of distress noted. Patient agrees to discharge treatment plan of care. No further questions noted by the patient. Critical care attestation.: If time is entered above; I have spent that time in minutes in the direct care of this critically ill patient, excluding procedure time. ED Disposition Clinical Impression: Abdominal pain Qualifiers: Abdominal location: generalized Qualified Code(s): R10.84 - Generalized abdominal pain Nausea & vomiting Qualifiers: Vomiting type: unspecified Vomiting Intractability: non-intractable Qualified Code(s): R11.2 - Nausea with vomiting, unspecified Disposition: TO HOME OR SELFCARE Is pt being admited?: No Does the pt Need Aspirin: No Condition: Stable Instructions: Abdominal Pain, Adult, [id number], Nausea and Vomiting, Adult Additional Instructions: Follow-up with a nurse orthopaedic doctor in 3-5 days or if symptoms worsen and continue return to emergency room as soon as possible. Prescriptions: Ciprofloxacin HCl 500 mg PO Q12H #14 tablet metroNIDAZOLE [Flagyl] 500 mg PO Q12HR #14 tab Metoclopramide [Reglan] 10 mg PO TID PRN #12 tab PRN Reason: Nausea Referrals: PRIMARY CAREMD [Referring] - 3-5 Days [facility] [Provider Group] - 3-5 Days REYMUNDO REYES MD [Staff Physician] - 3-5 Days Time of Disposition: 22:04
[2021-01-18 21:51] LABS: BUN/Creatinine Ratio 18; Blood Urea Nitrogen 20 mg/dL (9-20); Calcium 8.3 mg/dL (8.4-10.2); Hemolysis Index 4
== END 2021-01-18 23:00 | disposition home or self-care (01) ==
LOC: ED 17:41
DX: R11.2 Nausea with vomiting, unspecified (principal); R10.9 Unspecified abdominal pain; Z79.899 Other long term (current) drug therapy; Z90.49 Acquired absence of other specified parts of digestive tract
CPT/HCPCS: 36415; 74177; 80048; 80053; 81001; 83690; 85025; 96361; 96374; 96375; 99284; J1200; J2765; J7030; Q9967

== ENCOUNTER 2021-04-17 11:29 | Emergency (ER) | payer OTHER ==
[2021-04-17] MEDS ORDERED: IBUPROFEN 800 MG TAB PO ONE (13:27)
--- NOTE | 2021-04-17 13:35 | Emergency Department Report ---
ED Fall HPI - General Chief Complaint: Fall Stated Complaint: RIB PAIN Time Seen by Provider: 04/17/21 13:27 Source: patient Mode of arrival: Ambulatory - History of Present Illness Initial Comments: 45 yo male comse to ER sp fall yesterday where he landed on his right side. No other complaint. He states he tripped and fell. No loc. No prodrome symptoms. Today he woke up with rib pain He comes to ER via POV ambulatory and in nad Complaint: fall -: Sudden, days(s) Fall From: standing When Fall Occurred: 24 hours [employer] Fall Witnessed: yes, by bystander Place Fall Occurred: home Loss of Consciousness: none Prolonged Down Time?: no Symptoms Prior to Fall: none Severity: moderate Context: tripped/slipped Associated Symptoms: denies - Related Data Previous Rx's Medication Instructions Recorded Last Taken Type Famotidine [Pepcid] 40 mg PO QHS #14 tablet 11/19/19 Unknown Rx Albuterol Mdi (or & Nicu Only) 2 puff IH QID PRN #1 inhalation 02/16/20 Unknown Rx [ProAir HFA Inhaler] Dicyclomine [Bentyl] 20 mg PO Q12H PRN #14 tablet 12/25/20 Unknown Rx Ibuprofen [Motrin] 800 mg PO Q8HR PRN #30 tablet 04/17/21 Unknown Rx Allergies Allergy/AdvReac Type Severity Reaction Status Date / Time No Known Allergies Allergy Verified 11/19/19 18:31 ED Review of Systems ROS: Stated complaint: RIB PAIN Other details as noted in HPI Comment: All other systems reviewed and negative ED Past Medical Hx - Past Medical History Previous Medical History?: Yes Additional medical history: Clipped Appendix - Surgical History Past Surgical History?: Yes Hx Appendectomy: Yes (" CLIPPED APPENDIX", 2019) - Family History Family history: no significant - Social History Smoking Status: Current Every Day Smoker Substance Use Type: Alcohol, Marijuana - Medications Home Medications: Home Medications Medication Instructions Recorded Confirmed Last Taken Type Famotidine [Pepcid] 40 mg PO QHS #14 tablet 11/19/19 Unknown Rx Albuterol Mdi (or & Nicu Only) 2 puff IH QID PRN #1 inhalation 02/16/20 Unknown Rx [ProAir HFA Inhaler] Dicyclomine [Bentyl] 20 mg PO Q12H PRN #14 tablet 12/25/20 Unknown Rx Ibuprofen [Motrin] 800 mg PO Q8HR PRN #30 tablet 04/17/21 Unknown Rx ED Physical Exam - General Limitations: No Limitations General appearance: alert, in no apparent distress - Head Head exam: Present: atraumatic, normocephalic - Eye Eye exam: Present: normal appearance - ENT ENT exam: Present: mucous membranes moist - Neck Neck exam: Present: normal inspection - Respiratory Respiratory exam: Present: normal lung sounds bilaterally. Absent: respiratory distress - Cardiovascular Cardiovascular Exam: Present: regular rate, normal rhythm. Absent: systolic murmur, diastolic murmur, rubs, gallop - GI/Abdominal GI/Abdominal exam: Present: soft, normal bowel sounds - Rectal Rectal exam: Present: deferred - Extremities Exam Extremities exam: Present: normal inspection - Back Exam Back exam: Present: normal inspection - Neurological Exam Neurological exam: Present: alert, oriented X3 - Psychiatric Psychiatric exam: Present: normal affect, normal mood - Skin Skin exam: Present: warm, dry, intact, normal color. Absent: rash ED Course Vital Signs 04/17/21 13:17 Temperature 97.4 F L Pulse Rate 86 Respiratory 20 Rate Blood Pressure 139/86 O2 Sat by Pulse 99 Oximetry ED Medical Decision Making - Radiology Data Radiology results: report reviewed, image reviewed nap - Medical Decision Making xray noted normal vs normal no BOBBY medicated with motrin. pt educated on rib contusion. Dc home with dc plan of care including meds, follow up, activity and diet. He verbalizes understanding. Vital Signs 04/17/21 13:17 Temperature 97.4 F L Pulse Rate 86 Respiratory 20 Rate Blood Pressure 139/86 O2 Sat by Pulse 99 Oximetry - Differential Diagnosis ro fx vs contusion Critical care attestation.: If time is entered above; I have spent that time in minutes in the direct care of this critically ill patient, excluding procedure time. ED Disposition Clinical Impression: Rib pain on right side, Fall from ground level Disposition: 01 HOME / SELF CARE / HOMELESS Is pt being admited?: No Does the pt Need Aspirin: No Condition: Stable Instructions: Rib Contusion Additional Instructions: med as ordered for pain follow up with pcp in 1 week if pain persists activity as tolerated Prescriptions: Ibuprofen [Motrin] 800 mg PO Q8HR PRN #30 tablet PRN Reason: Pain, Moderate (4-6) Referrals: CARBUCCIA,REYMUNDO, MD [Staff Physician] - 3-5 Days Time of Disposition: 14:28
--- NOTE | 2021-04-17 14:36 | XRay Report ---
PA CHEST AND RIGHT RIB DETAIL 5 VIEWS INDICATION / CLINICAL INFORMATION: Fall with right rib pain. COMPARISON: CXR 02/16/20. FINDINGS: The heart size and pulmonary vasculature are normal. The lungs are clear. There is no evidence of pne umothorax or pleural effusion. I see no evidence of an acute rib fracture or other significant abnormality. Signer Name: Juan José Bobby MD Signed: 04/17/2021 2:31 PM Workstation Name: [id number]
[2021-04-17 15:21] VITALS: BP 132/91
== END 2021-04-17 15:19 | disposition home or self-care (01) ==
LOC: ED 11:29
DX: R07.81 Pleurodynia (principal); F10.20 Alcohol dependence, uncomplicated; F17.200 Nicotine dependence, unspecified, uncomplicated; F12.90 Cannabis use, unspecified, uncomplicated; Y93.89 Activity, other specified; W19.XXXA Unspecified fall, initial encounter; Y92.89 Other specified places as the place of occurrence of the external cause; Y99.8 Other external cause status
CPT/HCPCS: 99283

== ENCOUNTER 2021-05-04 11:09 | Emergency (ER) | payer SELFPAY ==
[2021-05-04 11:16] VITALS: BP 148/89
--- NOTE | 2021-05-04 11:43 | Emergency Department Report ---
Chief Complaint: Pain General Stated Complaint: RIB/NEEDS WORK CLEARENCE Time Seen by Provider: 05/04/21 11:23 - HPI History of Present Illness: 45-year-old -Citizen Of [place] male presents to the emergency room stating that he is has rib pain on the right side and needs a work clearance. Patient was seen here in the emergency room on 04/17/2021 for the same complaint. Patient never followed up with primary care provider. Patient reports he was taking ibuprofen for pain. He told me that he was moving a dresser when he came down on him. Review of patient's charts he told the other provider that he had fallen on the right side. Patient denies any chest pain or shortness of breathing. - Exam Vital Signs: Vital Signs 05/04/21 11:13 Temperature 98.2 F Pulse Rate 100 H Respiratory 16 Rate Blood Pressure 148/89 [Left] O2 Sat by Pulse 100 Oximetry Physical Exam: General: Awake, appropriately interactive, no acute distress. Neck: Supple. Full range of motion intact. Cardiovascular: Normal peripheral perfusion. Pulmonary: No respiratory distress. Patient is speaking normally without use of accessory muscles. Skin: No apparent rashes or lesions. Neurological: No facial asymmetry. Speech is clear. Follows commands. Patient is alert and oriented. Musculoskeletal: Full range of motion, no crepitus. Able to bear weight and ambulate without difficulty. Distal neurovascular and motor/sensory function is intact. Psych: Cooperative. Appropriate mood and affect. MSE screening note: Focused history and physical exam performed. Due to findings the following was ordered: 45-year-old -Citizen Of [place] male presents to the emergency room stating that he is has rib pain on the right side and needs a work clearance. Patient was seen here in the emergency room on 04/17/2021 for the same complaint. Patient never followed up with primary care provider. Patient reports he was taking ibuprofen for pain. He told me that he was moving a dresser when he came down on him. Review of patient's charts he told the other provider that he had fallen on the right side. Patient denies any chest pain or shortness of breathing. ED Medical Decision Making - Medical Decision Making 45-year-old -Citizen Of [place] male presents to the emergency room stating that he is has rib pain on the right side and needs a work clearance. Patient was seen here in the emergency room on 04/17/2021 for the same complaint. Patient never followed up with primary care provider. Patient reports he was taking ibuprofen for pain. He told me that he was moving a dresser when he came down on him. Review of patient's charts he told the other provider that he had fallen on the right side. Patient denies any chest pain or shortness of breathing. Patient comes in being untruthful as he is told 2 different stories on how he has right side rib pain. Patient is requesting a work excuse. ED Disposition for MSE Clinical Impression: Rib pain on right side, Non-compliant patient Disposition: HOME / SELF CARE / HOMELESS Is pt being admited?: No Does the pt Need Aspirin: No Condition: Stable Instructions: Nonspecific Chest Pain, Adult, Chest Wall Pain, [id number] Additional Instructions: Tylenol or ibuprofen for pain follow-up with a primary care provider. Referrals: [facility] [Provider Group] - 3-5 Days Forms: Work/School Release Form(ED) Time of Disposition: 11:43
== END 2021-05-04 12:06 | disposition home or self-care (01) ==
LOC: ED 11:09
DX: R07.81 Pleurodynia (principal)
CPT/HCPCS: 99281

== ENCOUNTER 2021-12-26 05:10 | Emergency (ER) | payer SELFPAY ==
[2021-12-26 07:07] VITALS: BP 146/95
--- NOTE | 2021-12-26 08:42 | Emergency Department Report ---
ED ENT HPI - General Chief complaint: Medical Clearance Stated complaint: MOUTH HURT SWELLING Time Seen by Provider: 12/26/21 07:53 Source: patient Mode of arrival: Ambulatory Limitations: No Limitations - History of Present Illness Initial comments: Patient is a 46-year-old male that comes to the ER with left upper dental pain and . he has not seen a dentist. He denies fever or chills. He is taking p.o. He is ambulatory, nontoxic [id number]. MD complaint: tooth pain -: Gradual, days(s) Quality: aching Consistency: constant Improves with: none Worsens with: none Context- Dental: history of dental caries Associated Symptoms: toothache - Related Data Previous Rx's Medication Instructions Recorded Last Taken Type Famotidine [Pepcid] 40 mg PO QHS #14 tablet 11/19/19 Unknown Rx Albuterol Mdi (or & Nicu Only) 2 puff IH QID PRN #1 inhalation 02/16/20 Unknown Rx [ProAir HFA Inhaler] Dicyclomine [Bentyl] 20 mg PO QID PRN #20 tablet 11/22/20 Unknown Rx Ondansetron [Zofran Odt] 4 mg PO Q8HR PRN #20 tab.rapdis 11/22/20 Unknown Rx Dicyclomine [Bentyl] 20 mg PO Q12H PRN #14 tablet 12/25/20 Unknown Rx Ibuprofen [Motrin] 800 mg PO Q8HR PRN #30 tablet 04/17/21 Unknown Rx traMADoL [Ultram] 50 mg PO Q6HR PRN #14 tablet 04/29/21 Unknown Rx Famotidine [Pepcid] 20 mg PO BID #60 tablet 05/16/21 Unknown Rx Ibuprofen [Motrin 800 MG tab] 800 mg PO Q8HR PRN #30 tablet 05/16/21 Unknown Rx Amoxicillin [Trimox CAP] 500 mg PO BID #20 capsule 12/26/21 Unknown Rx Allergies Allergy/AdvReac Type Severity Reaction Status Date / Time No Known Allergies Allergy Verified 12/26/21 07:07 ED Dental HPI - General Chief complaint: Medical Clearance Stated complaint: MOUTH HURT SWELLING Time Seen by Provider: 12/26/21 07:53 Source: patient Mode of arrival: Ambulatory Limitations: No Limitations - Related Data Previous Rx's Medication Instructions Recorded Last Taken Type Famotidine [Pepcid] 40 mg PO QHS #14 tablet 11/19/19 Unknown Rx Albuterol Mdi (or & Nicu Only) 2 puff IH QID PRN #1 inhalation 02/16/20 Unknown Rx [ProAir HFA Inhaler] Dicyclomine [Bentyl] 20 mg PO QID PRN #20 tablet 11/22/20 Unknown Rx Ondansetron [Zofran Odt] 4 mg PO Q8HR PRN #20 tab.rapdis 11/22/20 Unknown Rx Dicyclomine [Bentyl] 20 mg PO Q12H PRN #14 tablet 12/25/20 Unknown Rx Ibuprofen [Motrin] 800 mg PO Q8HR PRN #30 tablet 04/17/21 Unknown Rx traMADoL [Ultram] 50 mg PO Q6HR PRN #14 tablet 04/29/21 Unknown Rx Famotidine [Pepcid] 20 mg PO BID #60 tablet 05/16/21 Unknown Rx Ibuprofen [Motrin 800 MG tab] 800 mg PO Q8HR PRN #30 tablet 05/16/21 Unknown Rx Amoxicillin [Trimox CAP] 500 mg PO BID #20 capsule 12/26/21 Unknown Rx Allergies Allergy/AdvReac Type Severity Reaction Status Date / Time No Known Allergies Allergy Verified 12/26/21 07:07 ED Review of Systems ROS: Stated complaint: MOUTH HURT SWELLING Other details as noted in HPI Comment: All other systems reviewed and negative ED Past Medical Hx - Past Medical History Previous Medical History?: Yes Hx Congestive Heart Failure: No Hx Diabetes: No Hx Asthma: No Hx COPD: No Hx HIV: No Additional medical history: Clipped Appendix - Surgical History Past Surgical History?: Yes Hx Appendectomy: Yes - Family History Family history: no significant - Social History Smoking Status: Current Every Day Smoker Substance Use Type: Alcohol, Marijuana - Medications Home Medications: Home Medications Medication Instructions Recorded Confirmed Last Taken Type Famotidine [Pepcid] 40 mg PO QHS #14 tablet 11/19/19 Unknown Rx Albuterol Mdi (or & Nicu Only) 2 puff IH QID PRN #1 inhalation 02/16/20 Unknown Rx [ProAir HFA Inhaler] Dicyclomine [Bentyl] 20 mg PO QID PRN #20 tablet 11/22/20 Unknown Rx Ondansetron [Zofran Odt] 4 mg PO Q8HR PRN #20 tab.rapdis 11/22/20 Unknown Rx Dicyclomine [Bentyl] 20 mg PO Q12H PRN #14 tablet 12/25/20 Unknown Rx Ibuprofen [Motrin] 800 mg PO Q8HR PRN #30 tablet 04/17/21 Unknown Rx traMADoL [Ultram] 50 mg PO Q6HR PRN #14 tablet 04/29/21 Unknown Rx Famotidine [Pepcid] 20 mg PO BID #60 tablet 05/16/21 Unknown Rx Ibuprofen [Motrin 800 MG tab] 800 mg PO Q8HR PRN #30 tablet 05/16/21 Unknown Rx Amoxicillin [Trimox CAP] 500 mg PO BID #20 capsule 12/26/21 Unknown Rx ED Physical Exam - General Limitations: No Limitations General appearance: alert, in no apparent distress - Head Head exam: Present: atraumatic, normocephalic - Eye Eye exam: Present: normal appearance - ENT ENT exam: Present: mucous membranes moist - Expanded ENT Exam Expanded Mouth exam: Absent: drooling, trismus, muffled voice, tongue normal, tongue elevation Teeth exam: Present: dental caries 1 - Other (Dental caries) - Neck Neck exam: Present: normal inspection - Respiratory Respiratory exam: Present: normal lung sounds bilaterally. Absent: respiratory distress - Cardiovascular Cardiovascular Exam: Present: regular rate, normal rhythm. Absent: systolic murmur, diastolic murmur, rubs, gallop - GI/Abdominal GI/Abdominal exam: Present: soft, normal bowel sounds - Rectal Rectal exam: Present: deferred - Extremities Exam Extremities exam: Present: normal inspection - Back Exam Back exam: Present: normal inspection - Neurological Exam Neurological exam: Present: alert, oriented X3 - Psychiatric Psychiatric exam: Present: normal affect, normal mood - Skin Skin exam: Present: warm, dry, intact, normal color. Absent: rash ED Course Vital Signs 12/26/21 07:04 Temperature 98.2 F Pulse Rate 91 H Respiratory 18 Rate Blood Pressure 146/95 [Right] O2 Sat by Pulse 99 Oximetry ED Medical Decision Making - Medical Decision Making Vital Signs 12/26/21 07:04 Temperature 98.2 F Pulse Rate 91 H Respiratory 18 Rate Blood Pressure 146/95 [Right] O2 Sat by Pulse 99 Oximetry No abscess, Ludewig's, trismus, fever, chills, tachycardia, hypotension, fever ABCs intact. Vital signs stable. Taking p.o. Medicated with Motrin for pain Patient educated on the need to follow-up with a dentist Patient discharged home with discharge plan of care including diet, activity, medications and follow-up. He verbalizes understanding of plan of care Critical care attestation.: If time is entered above; I have spent that time in minutes in the direct care of this critically ill patient, excluding procedure time. ED Disposition Clinical Impression: Pain, dental Disposition: HOME / SELF CARE / HOMELESS Is pt being admited?: No Does the pt Need Aspirin: No Condition: Stable Additional Instructions: see dentist reymundo referral below meds as ordered today until gone stay well hydrated with water Prescriptions: Amoxicillin [Trimox CAP] 500 mg PO BID #20 capsule Referrals: [facility] [Outside] - 3-5 Days Time of Disposition: 08:59
[2021-12-26] MEDS ORDERED: IBUPROFEN 800 MG TAB PO ONE (08:49)
== END 2021-12-26 10:30 | disposition home or self-care (01) ==
LOC: ED 05:10
DX: K08.89 Other specified disorders of teeth and supporting structures (principal); F17.200 Nicotine dependence, unspecified, uncomplicated; F12.90 Cannabis use, unspecified, uncomplicated; Z72.89 Other problems related to lifestyle; Z79.899 Other long term (current) drug therapy
CPT/HCPCS: 99282